=== PATIENT | male | born 1940 | race Caucasian/White ===

== ENCOUNTER 2017-03-27 07:42 | Emergency (ER) | payer MEDICARE ==
[2015-06-11 07:48] VITALS: BMI 32.6
[~2017-03-27 07:42] MED LIST: BAYER CHEWABLE81 MG PO; CLEOCIN HCL300 MG PO; DALIRESP500 MCG PO; FLUTICASONE PRO16 GM NASAL; IPRAT-ALBUT 0.5-3 ML UPD; K-TAB10 MEQ PO; LASIX20 MG PO; LEVAQUIN500 MG PO; MUCINEX1200 MG/BO PO; PLAVIX75 MG PO; PREDNISONE10 MG PO; SINGULAIR10 MG PO; SYMBICORT 16010.2 GM INH; TESSALON PERLE100 MG PO; VENTOLIN HFA18 GM INH; ZITHROMAX250 MG PO
[2017-03-27 08:19] LABS: BASOPHILS 0.9 % (0-2); HEMATOCRIT 45.5 % (42.0-54.0); HEMOGLOBIN 15.6 g/dL (13.5-17.5); IMMATURE GRANULOCYTES 0.3 % (0-5); LYMPHOCYTES 35.9 % (15-50); MCH 33.1 pg (26.0-34.0); MCHC 34.3 g/dL (31.0-37.0); MCV 96.6 fL (80.0-100.0); MEAN PLATELET VOLUME 10.3 fL (7.4-10.4); MONOCYTES 7.8 % (2-11); NEUTROPHILS 42.1 % (40-80); PLATELET COUNT 208 10x3/uL (130-400); RBC 4.71 10x6/uL (4.20-6.10); RDW 13.1 % (11.5-14.5); WBC 7.7 10x3/uL (4.8-10.8)
[2017-03-27 08:38] LABS: ALBUMIN 3.7 g/dL (3.4-5.0); ANION GAP 15.5 mmol/L (8-16); BILIRUBIN - TOTAL 0.87 mg/dL (0.2-1.3); CALCIUM 8.8 mg/dL (8.5-10.1); CARBON DIOXIDE 22.6 mmol/L (21.0-32.0); CREATININE - SERUM 1.1 mg/dL (0.6-1.3); POTASSIUM - SERUM 4.1 mmol/L (3.5-5.1); PROTEIN - SERUM 7.1 g/dL (6.4-8.2)
[2017-03-27 08:47] LABS: TROPONIN-I 0.022 ng/mL (0.000-0.060)
== END 2017-03-27 09:20 | disposition home or self-care (01) ==
LOC: D.ER 07:42
PROVIDERS: Emergency Medicine
DX: J44.1 Chronic obstructive pulmonary disease with (acute) exacerbation (principal); I10 Essential (primary) hypertension

== ENCOUNTER 2017-04-03 08:07 | Emergency (ER) | payer MEDICARE ==
[2015-06-11 07:48] VITALS: BMI 32.6
[2017-04-03 08:34] LABS: EOSINOPHILS 19.6 % (0-7); HEMATOCRIT 46.3 % (42.0-54.0); HEMOGLOBIN 15.9 g/dL (13.5-17.5); IMMATURE GRANULOCYTES 0.3 % (0-5); LYMPHOCYTES 36.9 % (15-50); MCH 33.1 pg (26.0-34.0); MCHC 34.3 g/dL (31.0-37.0); MCV 96.5 fL (80.0-100.0); MEAN PLATELET VOLUME 10.3 fL (7.4-10.4); MONOCYTES 9.2 % (2-11); PLATELET COUNT 240 10x3/uL (130-400); WBC 8.9 10x3/uL (4.8-10.8)
[2017-04-03 08:47] LABS: ALBUMIN 3.9 g/dL (3.4-5.0); ANION GAP 16.7 mmol/L (8-16); BILIRUBIN - TOTAL 0.81 mg/dL (0.2-1.3); CALCIUM 8.8 mg/dL (8.5-10.1); CARBON DIOXIDE 23.3 mmol/L (21.0-32.0); CREATININE - SERUM 1.3 mg/dL (0.6-1.3); PROTEIN - SERUM 7.5 g/dL (6.4-8.2)
[2017-04-03 09:10] LABS: MAGNESIUM - SERUM 2.2 mg/dL (1.8-2.4); TROPONIN-I 0.03 ng/mL (0.000-0.060)
== END 2017-04-03 10:33 | disposition home or self-care (01) ==
LOC: D.ER 08:07
PROVIDERS: Emergency Medicine
DX: R06.00 Dyspnea, unspecified (principal); J44.1 Chronic obstructive pulmonary disease with (acute) exacerbation; I50.9 Heart failure, unspecified; I10 Essential (primary) hypertension

== ENCOUNTER 2017-04-05 02:24 | Inpatient (IN) | payer MEDICARE ==
[~2017-04-05] VITALS: Ht 172.7 cm; Wt 94.3 kg
[2017-04-05 02:58] LABS: BASOPHILS 0.5 % (0-2); EOSINOPHILS 6.5 % (0-7); HEMATOCRIT 44.4 % (42.0-54.0); HEMOGLOBIN 14.9 g/dL (13.5-17.5); IMMATURE GRANULOCYTES 0.7 % (0-5); MCH 32.6 pg (26.0-34.0); MCHC 33.6 g/dL (31.0-37.0); MCV 97.2 fL (80.0-100.0); MEAN PLATELET VOLUME 10.1 fL (7.4-10.4); MONOCYTES 8.2 % (2-11); NEUTROPHILS 48.1 % (40-80); PLATELET COUNT 250 10x3/uL (130-400); RBC 4.57 10x6/uL (4.20-6.10); RDW 13.2 % (11.5-14.5); WBC 10.7 10x3/uL (4.8-10.8)
[2017-04-05 03:11] LABS: ANION GAP 18.9 mmol/L (8-16); BILIRUBIN - TOTAL 0.63 mg/dL (0.2-1.3); CALCIUM 8.5 mg/dL (8.5-10.1); CARBON DIOXIDE 21.3 mmol/L (21.0-32.0); CREATININE - SERUM 1.8 mg/dL (0.6-1.3); POTASSIUM - SERUM 4.2 mmol/L (3.5-5.1); PROTEIN - SERUM 7.4 g/dL (6.4-8.2)
[2017-04-05 03:30] LABS: TROPONIN-I 0.059 ng/mL (0.000-0.060)
[2017-04-05 05:08] VITALS: BP 147/78; BMI 31.6
--- NOTE | 2017-04-05 05:20 | NUR ---
PATIENT RECIEVED FROM ER VIA WHEEL CHAIR. AWAITING TO BRING ABX FROM HOME. STATED THAT DR YIN PRESCRIBED THEM. HE IS ON 2LPM 02 VIA NASAL CANULA. HAS EXERTIONAL DYSPNEA. PIV TO RIGHT HAND SALINE LOCKED. TELEMETRY BEING PLACED ON. HOB ELEVATED, BED IN LOWEST LOCKED POSITION, CALL LIGHT WITHIN REACH.
--- NOTE | 2017-04-05 07:10 | NUR ---
REPORT RECEIVED FROM INSTANT PRINT OPERATOR NURSE. CALL LIGHT IN REACH.
[2017-04-05 08:14] VITALS: BP 121/76
--- NOTE | 2017-04-05 08:16 | NUR ---
ASSESSMENT COMPLETED. DENIES NEEDS AT THIS TIME. CALL LIGHT IN REACH. WILL CONTINUE WITH PLAN OF CARE.
--- NOTE | 2017-04-05 10:55 | NUR ---
AM MEDS ADMINISTERED. CALL LIGHT IN REACH.
[2017-04-05 11:51] VITALS: BP 124/88; BP 151/88
--- NOTE | 2017-04-05 12:29 | NUR ---
AWAKE AND ALERT. ORIENTED X3. NO C/O AT THIS TIME. LUNGS HAVE CRACKLES THROUGHOUT. DENIES PRODUCTIVE COUGH . DENIES NEEDS.
[2017-04-05] MEDS ORDERED: OMNICEF300 MG PO (12:30)
[2017-04-05] MEDS ORDERED: CLEOCIN HCL150 MG PO (12:30)
[2017-04-05] MEDS ORDERED: VIBRAMYCIN 100100 MG PO (12:30)
--- NOTE | 2017-04-05 12:58 | NUR ---
PT AMBULATED TO BATHROOM. ACUTE EXACERBATION OF EXERTIONAL DYPSNEA NOTED BILATERAL EXP COURSE CRACKLES WITH EXPIRATORY WHEEZES TO ALL ANTERIOR SAPP OF ASCULTATION. DUO NEB GIVEN ELIAS NEBULIZER. RR RATE 28BREATHS PER MIN POST TX PT STATES RESPIRATORY EFFORT "EASIER"
--- NOTE | 2017-04-05 14:05 | NUR ---
HAS PULLED IV OUT WITH TIP INTACT.
[2017-04-05 14:40] VITALS: Ht 172.7 cm; Wt 94.3 kg
[2017-04-05 16:05] VITALS: BP 171/95
--- NOTE | 2017-04-05 16:50 | NUR ---
IV SITED TO RIGHT WRIST WITH 22 GA X1 STICK.
--- NOTE | 2017-04-05 17:43 | NUR ---
IV SOLU-MEDROL ADMINISTERED. CALL LIGHT IN REACH.
--- NOTE | 2017-04-05 18:28 | NUR ---
NO CHANGES IN INITIAL ASSESSMENT. CALL LIGHT IN REACH. STILL REFUSES. WILL CONTINUE WITH PLAN OF CARE.
--- NOTE | 2017-04-05 20:00 | NUR ---
ASSESSMENT PER FLOWSHEET.BILATERAL EXPIRATORY WHEEZES NOTED O2 ON 3L/M PER NC. SALINE LOCK PATENT RT HAND . TELM./ SHOWS SR. REFUSES SCD'S.
[2017-04-05 20:21] VITALS: BP 158/73
--- NOTE | 2017-04-05 21:15 | NUR ---
MEDS GIVEN PER MAR.
--- NOTE | 2017-04-06 00:42 | NUR ---
PT TOOK O2 OFF AND WENT TO BATHROOM TO VOID CAME BACK TO BED AND GASPING FOR AIR. REPLACED O2 INSTRUSTED PT ON PURSE LIP BREATHING. PLACED FAN ON PATENT NOTIFIED RT TAWANA ROB TO DO UPDRAFT TX.
--- NOTE | 2017-04-06 00:43 | NUR ---
RT GILLIAM AT BEDSIDE FOR CH[place] HAN
--- NOTE | 2017-04-06 00:58 | NUR ---
HOB UP 45 DEGREES FAN ON PATIENT. ABLE TO BREATHE BETTER AFTER UPDRAFT TX. RESPIRATIONS STILL LABORED AND PT IS SOB BUT IMPROVING.
[2017-04-06 03:50] VITALS: BP 128/101
[2017-04-06 04:15] LABS: BASOPHILS 0 % (0-2); EOSINOPHILS 0 % (0-7); HEMOGLOBIN 14.1 g/dL (13.5-17.5); IMMATURE GRANULOCYTES 0.4 % (0-5); LYMPHOCYTES 8.8 % (15-50); MCHC 34.4 g/dL (31.0-37.0); MEAN PLATELET VOLUME 10.3 fL (7.4-10.4); MONOCYTES 3.7 % (2-11); NEUTROPHILS 87.1 % (40-80); PLATELET COUNT 258 10x3/uL (130-400); RBC 4.27 10x6/uL (4.20-6.10); RDW 13.2 % (11.5-14.5); WBC 12.7 10x3/uL (4.8-10.8)
[2017-04-06 04:32] LABS: ANION GAP 15.5 mmol/L (8-16); CALCIUM 8.8 mg/dL (8.5-10.1); CARBON DIOXIDE 23.6 mmol/L (21.0-32.0); CREATININE - SERUM 1.2 mg/dL (0.6-1.3); POTASSIUM - SERUM 4.1 mmol/L (3.5-5.1)
--- NOTE | 2017-04-06 07:10 | NUR ---
REPORT RECEIVD FROM TRAY LINE WORKER NURSE. CALL LIGHT IN REACH.
--- NOTE | 2017-04-06 07:34 | HP ---
PATIENT: ANNMARIE COATES MEDICAL RECORD: [id number] ACCOUNT: [id number] LOCATION:D.MS [id number] : 42 ADMISSION DATE: 04/05/17 HISTORY AND PHYSICAL EXAMINATION HISTORY OF PRESENT ILLNESS: A 76-year-old male presented to the Emergency Room early this morning with shortness of breath, persistent cough, reports syncopal episodes with spasmodic coughing, history of COPD, coronary artery disease. He had a clear heart cath 2016, has had prior stent placements. Denies anginal symptoms, just the cough, shortness of breath. MEDICATIONS: Reported medications Spiriva. He has been on antibiotics to the clinic for bronchitis, exacerbation of chronic obstructive pulmonary disease, also on tapered prednisone. He has a nebulizer at home, DuoNebs at home. ALLERGIES: No known drug allergies. SOCIAL HISTORY: Former smoker, has not smoked for 5 years. REVIEW OF SYSTEMS: GENERAL: No acute change in weight or appetite. HEENT: Denies cephalgia, visual changes, tinnitus, epistaxis, or dysphagia. CARDIOVASCULAR: Chest pain with cough only, no anginal-type symptoms. PULMONARY: Persistent cough. GASTROINTESTINAL: Denies hematemesis, hematochezia, or melena. GENITOURINARY: Denies dysuria. MUSCULOSKELETAL: No acute changes. ENDOCRINE: Denies polyuria, polydipsia, or polyphagia. PHYSICAL EXAMINATION: VITAL SIGNS: Temperature 98.4, blood pressure is 121/76, heart rate 99, respirations 18, and O2 sats 92% on 4 liters via nasal cannula. HEENT: Head is normocephalic, atraumatic. Eyes; pupils are equal, round, and reactive to light and accommodation. Extraocular muscles intact. Conjunctiva was not injected. Ears, canals patent. TMs are intact. Nose, nares patent without drainage. Throat, no erythema, no exudates. NECK: Supple. No lymphadenopathy, no JVD. HEART: Regular rate and rhythm. LUNGS: Scattered rhonchi bilaterally. Expiratory wheeze. ABDOMEN: Soft, nontender. Bowel sounds all 4 quadrants. EXTREMITIES: Present times 4. NEUROLOGIC: No focal deficits. SKIN: Warm and dry. No rash. LABORATORY DATA AND DIAGNOSTIC STUDIES: ABG: pH 7.327, pCO2 of 39.7, and pO2 of 71. CBC: White count 10.7, hemoglobin 14.9, hematocrit 44.4, platelets 250. D-dimer 0.38. Chemistry shows sodium 141, potassium 4.2, chloride 105, bicarbonate 21.3, BUN 24, creatinine 1.8. Chest x-ray: No acute cardiopulmonary process. ASSESSMENT AND PLAN: Exacerbation of chronic obstructive pulmonary disease. The patient is admitted. We will consult pulmonology. With his smoking history and prior abnormal CT, we will obtain a CT without contrast due to renal function and cautious hydration with fluids, DuoNebs, and supportive care. Supplemental O2. HISTORY AND PHYSICAL [id number] ANNMARIE COATES TRANSINT:[id number] Voice Confirmation ID: [id number] DOCUMENT ID: [id number] SUAD CULVER DO at 0734 CC: [id number] DICTATION DATE: 04/05/17 0856 SOURCING SPECIALIST: 04/05/[address] [facility] [address] [place] [address]
--- NOTE | 2017-04-06 08:17 | NUR ---
ASSESSMENT COMPLETED. REFUSES SCDs. CALL LIGHT IN REACH. WILL CONTINUE WITH PLAN OF CARE.
[2017-04-06 08:38] VITALS: BP 113/70
--- NOTE | 2017-04-06 09:38 | NUR ---
PT SEEN. STATES BREATHING IS BETTER THIS AM. DOES NOT WEAR OXYGEN AT HOME. NO SOB NOTED OR STATED. RESTING QUIETLY WITH EYES CLOSED. CALL LIGHT IN REACH
--- NOTE | 2017-04-06 10:59 | NUR ---
AM MEDS ADMINISTERED. CALL LIGHT IN REACH.
--- NOTE | 2017-04-06 12:15 | NUR ---
RESPIRATORY IN ROOM TO DO BREATHING TREATMENT.
[2017-04-06 12:56] VITALS: BP 141/78
--- NOTE | 2017-04-06 14:10 | NUR ---
RESTING WITH EYES CLOSED. RESP EVEN AND UNLABORED. CALL LIGHT IN REACH.
[2017-04-06 16:29] VITALS: BP 127/74
--- NOTE | 2017-04-06 16:38 | NUR ---
ORAL MEDS ADMINISTERED. COUGH MED PER REQUEST. CALL LIGHT IN REACH.
--- NOTE | 2017-04-06 18:49 | NUR ---
SOLUMEDROL IVP. STILL REFUSES SCDs. NO CHANGES IN INITIAL ASSESSMENT. CALL LIGHT IN REACH. WILL CONTINUE WITH PLAN OF CARE.
[2017-04-06 20:00] VITALS: BP 160/67
--- NOTE | 2017-04-06 22:06 | NUR ---
REC'D. SITTING IN UPRIGHT POSITION FAN ON. STATES COOL AIR HELPS HIM TO BREATH BETTER. DENIES ANY RESP. DIFFICULTY AT PRESENT TIME. WILL CONTINUE TO MONITOR FOR ANY CHGES.AND FOLLOW CURRENT PLAN OF CARE.
[2017-04-07] VITALS: BP 152/64
--- NOTE | 2017-04-07 03:55 | NUR ---
0300) RESP. THERAPY HERE FOR UPDRAFT THERAPY.MOMENTS INTO TX.PASSED DOOR PATIENT DUSKY IN COLOR STATES CAN'T BREATH. SATS 88% ON 3L NC.RESP. HERE OXIMIZER APPLIED AT 7L.SATS 91% 0345) 97% NC REAPPLIED AT 0400 SATS REMAIN AT 96-97% ON 3L NC STATES FEELS MUCH BETTER NOW
[2017-04-07 04:00] VITALS: BP 140/88
--- NOTE | 2017-04-07 05:44 | NUR ---
PATIENT RESTING IN BED WITH EYES CLOSED AND NO VISIBLE SIGNS OF DISTRESS. BED IN LOWEST POSITION AND CALL LIGHT WITHIN REACH.
--- NOTE | 2017-04-07 07:25 | NUR ---
REPORT RECEIVED FROM FOAM RUBBER FABRICATOR NURSE. CALL LIGHT IN REACH.
[2017-04-07 08:36] VITALS: BP 148/93
--- NOTE | 2017-04-07 08:37 | NUR ---
PLEASE CHANGE TO PORTABLE THE PATIENT IS TOO WEAK TO STAND
--- NOTE | 2017-04-07 08:40 | NUR ---
ASSESSMENT COMPLETED. REFUSES SCDs. CALL LIGHT IN REACH. WILL CONTINUE WITH PLAN OF CARE.
--- NOTE | 2017-04-07 09:24 | NUR ---
AMBULATED FOR EVALUATION OF HOME O2 PER MD ORDER. PT WALKED APPROX 20 YARD WHERE MARKED EXERTIONAL DYPSNEA WAS NOTED SPO2 DECREASED TO 88%. REAPPLIED O2 OF 2L VIA NC. PT RECOVERED TO 94%. PURSED LIP BREATHING AND PROLONGED EXPIRATION NOTED UPON DYSPNEIC EPISODE. PT LIZ TX WELL
--- NOTE | 2017-04-07 11:17 | NUR ---
AM MEDS ADMINISTERED PER FLORA GONZALEZ. CALL LIGHT IN REACH.
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
--- NOTE | 2017-04-07 13:15 | NUR ---
RESPIRATORY THERAPY IN ROOM WITH PATIENT AT THIS TIME. CALL LIGHT IN REACH.
--- NOTE | 2017-04-07 13:50 | NUR ---
NUTRITION F/U CHART REVIEWED. PT TOLERATING REG DIET, 100% INTAKE RECENT MEALS. WILL CONTINUE TO PROVIDE DIET, HONOR FOOD PREFERENCES. RD FOLLOWING
--- NOTE | 2017-04-07 14:05 | NUR ---
pt note-pt has exp wheezes noted-after talking with me, pt noted to be lip purse breathing to recover oxygen level-instructed pt to slow breathing down-resp easier now. spouse at bedside. call light in reach
[2017-04-07 14:20] VITALS: BP 138/80
--- NOTE | 2017-04-07 14:49 | NUR ---
NATALYA RAMIREZ PO. CALLED DR. BUSCH'S OFFICE AND LEFT MESSAGE THAT PATIENT WOULD LIKE TO SPEAK WITH HIM.
--- NOTE | 2017-04-07 14:50 | NUR ---
REPORT GIVEN TO FLORA CLAY.
[2017-04-07 16:23] VITALS: BP 154/78
[2017-04-07 23:09] VITALS: BP 164/86
--- NOTE | 2017-04-07 23:25 | NUR ---
REC'D. GETTING UPDRAFT TX. LIZ. WELL THIS PM.02 3L NC. 02 SATS 94% WILL CONTINUE TO MONITOR FOR ANY CHGES. AND FOLLOW CURRENT PLAN OF CARE.
[2017-04-08 01:20] VITALS: BP 131/78
[2017-04-08 05:04] LABS: ANION GAP 14.3 mmol/L (8-16); CALCIUM 8.8 mg/dL (8.5-10.1); CARBON DIOXIDE 25.9 mmol/L (21.0-32.0); CREATININE - SERUM 1.2 mg/dL (0.6-1.3); POTASSIUM - SERUM 4.2 mmol/L (3.5-5.1)
[2017-04-08 05:48] VITALS: BP 137/87
--- NOTE | 2017-04-08 07:40 | NUR ---
Patient Name: ANNMARIE COATES Admission Status: ER Accout number: [id number] Admission Date: 04-05-2017 : 1940 Admission Diagnosis:CHRONIC OBSTRUCTIVE PULMONARY DISEASE W (ACUTE) EXACERB Attending: SUAD CULVER Current LOS: 3 Anticipated DC Date: 04-11-2017 Planned Disposition: Home Primary Insurance: [employer] CHOICE PPO MCR ADVANT Discharge Planning Comments: CM MET WITH PATIENT REGARDING D/C NEEDS AND PLANS. PATIENT STATED HE LIVES WITH HIS (SUSAN WARREN) AND SHE WILL DRIVE HIM HOME AT DISCHARGE. PATIENT STATED HE HAS 4 STEPS TO ENTER HOME AND NO STAIRS INSIDE. PATIENT IS INDEPENDENT WITH HIS CARE AND HAS NO DME AT HOME. PATIENTS PCP IS DR. CULVER AND PHARMACY IS READING [facility]. PATIENT HAS A [employer] NURSE THAT VISITS ONCE EVERY 3 MONTHS. PATIENT IS REFUSING HOME HEALTH AT THIS TIME. CM WILL CONTINUE TO FOLLOW PATIENT WITH D/C NEEDS AND PLANS. PCP DR. CULVER [facility]- [phone] SUSAN WARREN () [phone] Innersole Maker: Tracy Mckeon Is the patient Alert and Oriented? Yes 0 * How many steps to enter\exit or inside your home? 4 w/o rail 0 * PCP DR. CULVER 0 * [facility] 0 * Preadmission Environment Home with Family 0 * ADLs Independent 0 * Equipment None 0 * List name and contact numbers for known caregivers / representatives who currently or will assist patient after discharge: SUSAN WARREN () [phone] 0 * Community resources currently utilized None 0 * Additional services required to return to the preadmission environment? Yes 0 * Can the patient safely return to the preadmission environment? Yes 0 * Has this patient been hospitalized within the prior 30 days at any hospital? No 0 Grand Total: 0
--- NOTE | 2017-04-08 07:57 | NUR ---
REPORT RECEIVED FROM TRANSMISSION TESTER NURSE. CALL LIGHT IN REACH.
--- NOTE | 2017-04-08 08:15 | NUR ---
ASSESSMENT COMPLETED. STILL REFUSING TO WEAR SCDs. INSTRUCTED PATIENT TO SIT IN CHAIR FOR BREAKFAST AND ALL OTHER MEALS. VERBALIZED UNDERSTANDING. CALL LIGHT IN REACH. WILL CONTINUE WITH PLAN OF CARE.
[2017-04-08 09:07] VITALS: BP 136/74
--- NOTE | 2017-04-08 09:28 | NUR ---
AM MEDS ADMINISTERED. REQUESTING LIQUID COUGH MED BUT TOO SOON. EXPLAINED THIS TO PATIENT AND HE VERBALIZED UNDERSTANDING. PATIENT REFUSED TO WALK WITH PHYSICAL THERAPY. EXPLAINED TO PATIENT THAT HE NEEDS TO GET UP AND MOVE AROUND BUT HE STATES THAT HE GETS TOO OUT OF BREATH. HE DID SIT IN THE CHAIR FOR BREAKFAST. CALL LIGHT IN REACH. WILL CONTINUE WITH PLAN OF CARE.
--- NOTE | 2017-04-08 11:50 | NUR ---
HAS NOT HAD ANY TROUBLE OR DIFFICULTY BREATHING TODAY AT THIS TIME. STARTING TO BE ABLE TO FINALLY GET THE SPUTUM OUT.
--- NOTE | 2017-04-08 12:16 | NUR ---
HARSH PO. STATES HE FEELS LIKE HE ISN'T GETTING ANY AIR. STATES "I AM DYING." EXPLAINED TO PATIENT THAT HE IS NOT DYING AND HE IS MORE ANXIUOS AT THIS TIME BUT HE IS PASSING AIR. CALLED RESPIRATORY THERAPIST TO SEE IF PATIENT CAN HAVE A PRN BREATHING TREATMENT.
[2017-04-08 12:51] VITALS: BP 157/73
--- NOTE | 2017-04-08 13:16 | NUR ---
PT NOTE-NO SOB NOTED OR VOICED AT THIS MOMENT. HAD ATTACK DURING THE NIGHT BUT IS BETTER THIS AM. UP IN CHAIR. CALL LIGHT IN REACH
--- NOTE | 2017-04-08 15:24 | NUR ---
XANAX, COUGH MED, AND TESSALON PERLES PO. IN ROOM. CALL LIGHT IN REACH.
[2017-04-08 17:07] VITALS: BP 122/73
--- NOTE | 2017-04-08 17:20 | NUR ---
RESTING WITH EYES CLOSED. RESP EVEN AND UNLABORED. CALL LIGHT IN REACH.
--- NOTE | 2017-04-08 18:16 | NUR ---
AMAURY IVPB. ALL NEW IV TUBING PER HOSPITAL PROTOCOL. NO OTHER CHANGES IN INITIAL ASSESSMENT. CALL LIGHT IN REACH. STILL REFUSES SCDs. WILL CONTINUE WITH PLAN OF CARE.
[2017-04-08 20:00] VITALS: BP 133/78
--- NOTE | 2017-04-08 20:00 | NUR ---
ASSESSMENT PER FLOWSHEET. IV PATENT TO RT HAND. WITH NS AT KVO. EDEMA NOTED AT SITE. IV REMOVED RESITED TO LEFT WRIST #22G ANGIOCATH X2 ATTEMPTS. O2 ON 3L/M PER NC. TELM SHOWS SR WITH HR 76. DENIES NEEDS. SR UP X2 CALL LIGHT WITHIN REACH.
--- NOTE | 2017-04-08 22:00 | NUR ---
MEDS GIVEN PER MAR.
--- NOTE | 2017-04-08 23:13 | NUR ---
REQUESTING HIS ANXIETY MED XANAX 0.25MG PO GIVEN BY PELON HINES.
--- NOTE | 2017-04-08 23:30 | NUR ---
DR. BUSCH WROTE IN ORDERS. TO CHANGE SOLUMEDROL TIMES. PM DOSE HAS ALREADY BEEN GIVEN WILL HOLD 2400 DOSE AND GIVE DOSE AT 0600.
[2017-04-09] VITALS: BP 140/75
[2017-04-09 04:00] VITALS: BP 144/75
[2017-04-09 05:18] LABS: BASOPHILS 0 % (0-2); EOSINOPHILS 0 % (0-7); HEMATOCRIT 44.4 % (42.0-54.0); HEMOGLOBIN 15.1 g/dL (13.5-17.5); IMMATURE GRANULOCYTES 1.8 % (0-5); LYMPHOCYTES 8.2 % (15-50); MCH 32.8 pg (26.0-34.0); MCV 96.3 fL (80.0-100.0); MEAN PLATELET VOLUME 10.7 fL (7.4-10.4); MONOCYTES 2.8 % (2-11); NEUTROPHILS 87.2 % (40-80); PLATELET COUNT 243 10x3/uL (130-400); RBC 4.61 10x6/uL (4.20-6.10); RDW 13.2 % (11.5-14.5); WBC 10.2 10x3/uL (4.8-10.8)
[2017-04-09 06:00] LABS: ANION GAP 13.8 mmol/L (8-16); CALCIUM 8.8 mg/dL (8.5-10.1); CARBON DIOXIDE 25.6 mmol/L (21.0-32.0); CREATININE - SERUM 1.5 mg/dL (0.6-1.3); MAGNESIUM - SERUM 2.1 mg/dL (1.8-2.4); PHOSPHOROUS 3.6 mg/dL (2.5-4.9); POTASSIUM - SERUM 4.4 mmol/L (3.5-5.1)
--- NOTE | 2017-04-09 08:35 | NUR ---
ASSESSMENT COMPLETED. REFUSES SCDs. CALL LIGHT IN REACH. WILL CONTINUE WITH PLAN OF CARE.
[2017-04-09 08:48] VITALS: BP 128/89
--- NOTE | 2017-04-09 09:45 | NUR ---
AM MEDS ADMINISTERED. COUGH MED ALSO. AT BEDSIDE. CALL LIGHT IN REACH.
--- NOTE | 2017-04-09 11:30 | NUR ---
IN ROOM AT THIS TIME. PATIENT DENIES NEEDS. CALL LIGHT IN REACH.
[2017-04-09 13:11] VITALS: BP 135/85
--- NOTE | 2017-04-09 13:12 | NUR ---
SOLUMEDROL SIVP. WAITING ON ABX FROM PHARMACY. DENIES NEEDS AT THIS TIME. CALL LIGHT IN REACH.
--- NOTE | 2017-04-09 14:49 | NUR ---
O2 @ 3L PER NC. EXPIRATORY WHEEZING TO ALL LUNG SAPP. COBY TAVERAS, IN ROOM TO GIVE IV ABX AND TESSALON PERLES. STATES HE FEELS MUCH BETTER THAN HE HAS IN THE LAST COUPLE OF DAYS. DENIES PAIN OR NEEDS. IN ROOM. CALL LIGHT IN REACH.
[2017-04-09 16:21] VITALS: BP 146/85
--- NOTE | 2017-04-09 16:41 | NUR ---
DENIES NEEDS AT THIS TIME. CALL LIGHT IN REACH.
--- NOTE | 2017-04-09 18:00 | NUR ---
XANAX PO AND LEVAQUIN AND SOLUMEDROL IV. NO OTHER CHANGES IN INITIAL ASSESSMENT. CALL LIGHT IN REACH. STILL REFUSES SCDs. WILL CONTINUE WITH PLAN OF CARE.
--- NOTE | 2017-04-09 19:00 | NUR ---
REPORT RECEIVED AND CARE OF PT ASSUMED. PT LYING IN HIGH ARDON'S POSITION WATCHING TV. IV IN LEFT WRIST PATENT WITH LEVAQUIN INFUSING AT THIS TIME. TELEMETRY IN PLACE AND READING [address] AT THIS ASSESSMENT. O2 IN USE VIA NC AT 3L. WILL MONITOR QUETALEY FOR NEEDS.
[2017-04-09 20:00] VITALS: BP 146/87
--- NOTE | 2017-04-09 20:30 | NUR ---
HS MEDICATIONS GIVEN TO INCLUDE TUSSIONEX COUGH SYRUP PER PRN ORDER, PER REQUEST. WILL CONTINUE TO MONITOR FOR NEEDS.
--- NOTE | 2017-04-09 21:17 | NUR ---
PT UP TO RESTROOM....GETS VERY SOB ON EXERTION.
[2017-04-10] VITALS: BP 151/82
[2017-04-10 04:00] VITALS: BP 144/52
[2017-04-10 06:37] LABS: ANION GAP 15.8 mmol/L (8-16); CALCIUM 8.8 mg/dL (8.5-10.1); CARBON DIOXIDE 24.4 mmol/L (21.0-32.0); CREATININE - SERUM 1.3 mg/dL (0.6-1.3); POTASSIUM - SERUM 4.2 mmol/L (3.5-5.1)
--- NOTE | 2017-04-10 08:00 | NUR ---
ASSESSMENT PER FLOW SHEET.PT WITHOUT DISTRESS.DENIES NEEDS AT PRESENT.MONITOR FOR NEEDS
[2017-04-10 10:10] VITALS: BP 146/73
--- NOTE | 2017-04-10 13:00 | NUR ---
HAS RESTED SOME THIS AM,BUT KEEPS GETTING WOKE UP PER PT.
[2017-04-10 13:39] VITALS: BP 140/70
[2017-04-10 16:51] VITALS: BP 138/72
--- NOTE | 2017-04-10 18:10 | NUR ---
IV RESITED X2 STICKS USING ASEPTIC TECH 22G. PREVIOUS IV LEAKING AND DCD WITH CATH INTACT.
--- NOTE | 2017-04-10 18:18 | NUR ---
REMAINS WITHOUT CHANGE FROM INITIAL SHIFT ASSESSMENT .CONT PLAN OF CARE
--- NOTE | 2017-04-10 19:00 | NUR ---
REPORT RECEIVED AND CARE OF PT ASSUMED. PT LYING IN HIGH RADON'S POSITION WATCHING TV. IV IN LEFT FA PATENT WITH LEVOQUIN INFUSING AT THIS TIME. TELEMETRY IN PLACE AND READING 89 SR W/ PAC'S. O2 IN USE VIA NC AT 3L. WILL MONITOR CLOSELY FOR NEEDS. CALL LIGHT WITHIN REACH.
[2017-04-10 20:00] VITALS: BP 119/80
--- NOTE | 2017-04-10 21:05 | NUR ---
HS MEDICATIONS GIVEN TO INCLUDE TUSSINEX FOR COUGH AND XANAX FOR ANXIETY PER REQUEST, PER PRN ORDERS. WILL CONTINUE TO MONITOR FOR NEEDS.
[2017-04-11] VITALS: BP 142/78; BP 155/88
[2017-04-11 04:00] VITALS: BP 141/76
[2017-04-11 05:09] LABS: BASOPHILS 0.1 % (0-2); EOSINOPHILS 0 % (0-7); HEMATOCRIT 43.5 % (42.0-54.0); HEMOGLOBIN 14.7 g/dL (13.5-17.5); IMMATURE GRANULOCYTES 1.6 % (0-5); LYMPHOCYTES 5.3 % (15-50); MCH 32.9 pg (26.0-34.0); MCHC 33.8 g/dL (31.0-37.0); MCV 97.3 fL (80.0-100.0); MEAN PLATELET VOLUME 10.5 fL (7.4-10.4); MONOCYTES 4.4 % (2-11); NEUTROPHILS 88.6 % (40-80); PLATELET COUNT 253 10x3/uL (130-400); RBC 4.47 10x6/uL (4.20-6.10); RDW 13.2 % (11.5-14.5); WBC 15.1 10x3/uL (4.8-10.8)
[2017-04-11 05:45] LABS: CALCIUM 8.3 mg/dL (8.5-10.1); CARBON DIOXIDE 25.3 mmol/L (21.0-32.0); CREATININE - SERUM 1.3 mg/dL (0.6-1.3); MAGNESIUM - SERUM 2.2 mg/dL (1.8-2.4); PHOSPHOROUS 3.1 mg/dL (2.5-4.9); POTASSIUM - SERUM 4.3 mmol/L (3.5-5.1)
--- NOTE | 2017-04-11 07:15 | NUR ---
REPORT RECEIVED FROM RUG SAMPLE BEVELER NURSE. CALL LIGHT IN REACH.
--- NOTE | 2017-04-11 08:10 | NUR ---
ASSESSMENT COMPLETED. NO SOB AT THIS TIME. REFUSES SCDs. CALL LIGHT IN REACH. WILL CONTINUE WITH PLAN OF CARE.
--- NOTE | 2017-04-11 10:45 | NUR ---
FELIX AND ALISON PO WITH AM MEDS. CALL LIGHT IN REACH.
--- NOTE | 2017-04-11 11:04 | NUR ---
RESTING QUIETLY IN BED. NO NEEDS NOTED.
[2017-04-11 11:38] VITALS: BP 154/87
--- NOTE | 2017-04-11 13:59 | NUR ---
CEFEPIME AND SOLUMEDROL IV. ALL IV TUBING CHANGED PER HOSPITAL POLICY.
[2017-04-11 15:04] VITALS: BP 138/74
--- NOTE | 2017-04-11 15:43 | NUR ---
NATALYA RAMIREZ PO. CALL LIGHT IN REACH.
--- NOTE | 2017-04-11 17:22 | NUR ---
AMAURY IVEY. AT BEDSIDE. NO NEEDS VOICED. CALL LIGHT IN REACH.
--- NOTE | 2017-04-11 18:11 | NUR ---
NO CHANGES IN INITIAL ASSESSMENT. CALL LIGHT IN REACH. STILL REFUSES SCDs. WILL CONTINUE WITH PLAN OF CARE.
--- NOTE | 2017-04-11 19:00 | NUR ---
REPORT RECEIVED AND CARE OF PT ASSUMED. PT LYING IN HIGH ARDON'S POSITION VISITING WITH FAMILY MEMBER. O2 IN USE VIA NC AT 3L. IV IN LEFT FA PATENT WITH LEVOQUIN INFUSING AT THIS TIME. TELEMETRY IN PLACE AND READING 96 SR W/ PAC'S AT THIS ASSESSMENT. WILL MONITOR CLOSELY FOR NEEDS.
--- NOTE | 2017-04-11 19:30 | NUR ---
PT IN SHOWER...BEDDING AND GOWN CHANGED.
[2017-04-11 20:00] VITALS: BP 115/76; BP 142/78
--- NOTE | 2017-04-11 20:01 | NUR ---
HS MEDICATIONS GIVEN TO INCLUDE XANAX 0.25 PO PER PT REQUEST FOR ANXIETY. WILL CONTNIUE TO MONITOR FOR NEEDS. FAMILY MEMBERS ARE AT BEDSIDE.
[2017-04-12] VITALS: BP 115/76
[2017-04-12 04:00] VITALS: BP 139/85
[2017-04-12 04:21] LABS: BASOPHILS 0.1 % (0-2); EOSINOPHILS 0 % (0-7); HEMATOCRIT 44.4 % (42.0-54.0); IMMATURE GRANULOCYTES 3.6 % (0-5); LYMPHOCYTES 4.7 % (15-50); MCHC 33.8 g/dL (31.0-37.0); MCV 97.8 fL (80.0-100.0); MEAN PLATELET VOLUME 10.2 fL (7.4-10.4); MONOCYTES 5.2 % (2-11); NEUTROPHILS 86.4 % (40-80); PLATELET COUNT 254 10x3/uL (130-400); RBC 4.54 10x6/uL (4.20-6.10); RDW 13.4 % (11.5-14.5); WBC 15.6 10x3/uL (4.8-10.8)
[2017-04-12 04:45] LABS: ANION GAP 13.6 mmol/L (8-16); APTT 22.6 SECONDS (22.8-39.4); CALCIUM 8.6 mg/dL (8.5-10.1); CARBON DIOXIDE 25.9 mmol/L (21.0-32.0); CREATININE - SERUM 1.3 mg/dL (0.6-1.3); INR 1.1 (0.85-1.17); POTASSIUM - SERUM 4.5 mmol/L (3.5-5.1); PROTIME 14.1 SECONDS (11.6-15.0)
--- NOTE | 2017-04-12 07:33 | NUR ---
PT UP AND IN RESTROOM , VERY SHORT OF BREATH WHEN HE CAME OUT, PT IS ON 3L OF OXYGEN, PT ASKED FOR ATIVAN STATED HE DID NOT GET ONE LAST NIGHT AND IS VERY ANXIOUS. PT [facility] SCHEDULED FOR NO[facility], WENT AHEAD AND GAVE PT MED WITH SIP OF WATER, PT CALMED DOWN AND ABLE TO BREATHE EASIER, CONTINUE WITH PLAN OF CARE
[2017-04-12 08:38] VITALS: BP 175/93
--- NOTE | 2017-04-12 10:02 | NUR ---
PT AOX4 RESP EVEN AND NONLABORED PT DENIES NEEDS AT THIS TIME IV TO LEFT FOREARM PATENT AND INTACT AT THIS TIME PT HERE FOR COPD FOR THIS VISIT. SRX2 BED AT LOWEST SETTING CALL LIGHT WITHIN REACH WILL CONTINUE TO MONITOR
[2017-04-12 12:38] VITALS: BP 143/84
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
[2017-04-12 16:16] VITALS: BP 144/69
--- NOTE | 2017-04-12 17:44 | NUR ---
PT WAS BROUGHT A REG DIET AND DINNER AND TOLERATED VERY WELL, NO SICKNESS FELT STATED THAT HE IS ATILL WHEEZING A BIT, ADVISED THAT BREATHING TREATMENTS WOULD CONTINUE
--- NOTE | 2017-04-12 20:00 | NUR ---
ASSESSMENT PER FLOWSHEET. IV PATENT RT HAND SALINE LOCKED SITE CLEAR. O2 ON 3L/M PER NC.BILATERAL EXSPIRATORY WHEEZES. NOTED. TELM. SHOWS SR WITH HR 84. DENIES NEEDS.
--- NOTE | 2017-04-12 21:55 | NUR ---
MEDS GIVEN PER JUL. SR UP X2 CALL LIGHT WITHIN REACH XANAX 0.25 TAB ONE PO GIVEN FOR ANXIETY/REST.
[2017-04-12 23:01] VITALS: BP 153/81
--- NOTE | 2017-04-13 00:47 | NUR ---
EYES CLOSED RESPIRATIONS WITH EASE AND UNLABORED.
[2017-04-13 01:52] VITALS: BP 148/83; BP 153/81
[2017-04-13 05:21] LABS: BASOPHILS 0.1 % (0-2); EOSINOPHILS 0 % (0-7); HEMATOCRIT 45.4 % (42.0-54.0); HEMOGLOBIN 15.2 g/dL (13.5-17.5); IMMATURE GRANULOCYTES 2.8 % (0-5); LYMPHOCYTES 8.6 % (15-50); MCH 32.8 pg (26.0-34.0); MCHC 33.5 g/dL (31.0-37.0); MCV 97.8 fL (80.0-100.0); MEAN PLATELET VOLUME 10.2 fL (7.4-10.4); MONOCYTES 3.6 % (2-11); NEUTROPHILS 84.9 % (40-80); PLATELET COUNT 236 10x3/uL (130-400); RBC 4.64 10x6/uL (4.20-6.10); RDW 13.4 % (11.5-14.5); WBC 13.8 10x3/uL (4.8-10.8)
[2017-04-13 05:22] VITALS: BP 141/78
[2017-04-13 05:33] LABS: ANION GAP 14.3 mmol/L (8-16); CALCIUM 8.4 mg/dL (8.5-10.1); CARBON DIOXIDE 24.4 mmol/L (21.0-32.0); CREATININE - SERUM 1.3 mg/dL (0.6-1.3); POTASSIUM - SERUM 4.7 mmol/L (3.5-5.1)
--- NOTE | 2017-04-13 06:00 | NUR ---
MEDS GIVEN PER MAR. NO CHANGES IN ASSESSMENT.
--- NOTE | 2017-04-13 07:55 | NUR ---
ASSESSMENT PER FLOW SHEET.PT WITHOUT DISTRESS.PT VERY ANXIOUS THIS AM AND EASILY EXCITED.PT DENIES PAIN AT PRESENT.CALL LIGHT IN REACH.
[2017-04-13 08:13] VITALS: BP 126/89
[2017-04-13 12:08] VITALS: BP 156/78
--- NOTE | 2017-04-13 13:11 | NUR ---
PT WITHOUT DISTRESS. TO VISIT.REMAINS WITHOUT NEEDS
--- NOTE | 2017-04-13 13:18 | NUR ---
NUTRITION F/U CHART REVIEWED. PT WITH GOOD INTAKE REG DIET. WILL CONTINUE TO PROVIDE DIET, MONITOR PO INTAKE. RD FOLLOWING
[2017-04-13 16:03] VITALS: BP 154/81
--- NOTE | 2017-04-13 17:30 | NUR ---
IV RESITED TO LEFT FOREARM X1 STICK USING ASEPTIC TECH,22G.
[2017-04-13 20:00] VITALS: BP 139/87
--- NOTE | 2017-04-13 20:04 | NUR ---
PATIENT'S INFUSION COMPLETED. PIV TO LEFT FOREARM SALINE LOCKED.
[2017-04-14] VITALS: BP 149/89
--- NOTE | 2017-04-14 02:00 | NUR ---
PT AWAKE SITTING ON SIDE OF BED WITH NO NEEDS. SIDE RAILS X 2. BED LOW. CALL LIGHT IN REACH.
[2017-04-14 04:00] VITALS: BP 148/86
[2017-04-14 05:34] LABS: BASOPHILS 0.1 % (0-2); EOSINOPHILS 0 % (0-7); HEMATOCRIT 45.9 % (42.0-54.0); HEMOGLOBIN 15.3 g/dL (13.5-17.5); IMMATURE GRANULOCYTES 6.7 % (0-5); LYMPHOCYTES 4.2 % (15-50); MCH 32.6 pg (26.0-34.0); MCHC 33.3 g/dL (31.0-37.0); MCV 97.7 fL (80.0-100.0); MEAN PLATELET VOLUME 10.5 fL (7.4-10.4); MONOCYTES 5.3 % (2-11); NEUTROPHILS 83.7 % (40-80); PLATELET COUNT 237 10x3/uL (130-400); RDW 13.4 % (11.5-14.5); WBC 15.9 10x3/uL (4.8-10.8)
[2017-04-14 05:53] LABS: ANION GAP 16.2 mmol/L (8-16); CALCIUM 7.9 mg/dL (8.5-10.1); CREATININE - SERUM 1.1 mg/dL (0.6-1.3); POTASSIUM - SERUM 4.2 mmol/L (3.5-5.1)
[2017-04-14] MEDS ORDERED: NYSTATIN ORAL SU5 ML PO (06:38)
[2017-04-14] MEDS ORDERED: PULMICORT0.5 MG/21 UPD (06:39)
[2017-04-14] MEDS ORDERED: MUCOMYST 20200 MG/M2 INH (06:40)
[2017-04-14] MEDS ORDERED: STERAPRED DS 1210 MG PO (06:40)
--- NOTE | 2017-04-14 07:16 | NUR ---
REPORT RECEIVED FROM COLORING MACHINE OPERATOR NURSE. CALL LIGHT IN REACH.
--- NOTE | 2017-04-14 07:55 | NUR ---
IV DC'D WITH TIP INTACT.
[2017-04-14 08:45] VITALS: BP 156/81
--- NOTE | 2017-04-14 09:10 | NUR ---
ASSESSMENT COMPLETED. AM MEDS ADMINISTERED. REFUSES SCDs. CALL LIGHT IN REACHL. WILL CONTINUE WITH PLAN OF CARE.
--- NOTE | 2017-04-14 10:11 | NUR ---
CM REASSESSMENT: PATIENT IS DISCHARGING HOME TODAY / FAMILY DRIVING HIM. PATIENT REFUSED HOME HEALTH AND HAD NO OTHER NEEDS FOR DISCHARGE.
--- NOTE | 2017-04-14 11:34 | NUR ---
IN BED WITH EYES CLOSED AT THIS TIME. RESP EVEN AND UNLABORED. CALL LIGHT IN REACH.
[2017-04-14] MEDS ORDERED: MUCINEX DM ER1 EAC1 PO (13:28)
--- NOTE | 2017-04-14 13:28 | NUR ---
XANAX PO PER ANXIETY. OFFERED COUGH MED BUT REFUSED. NYSTATIN PO. TELEMETRY REMOVED AFTER NOTIFYING STOCK LETTERER.
[2017-04-14] MEDS ORDERED: PREDNISONE10 MG PO (13:31)
--- NOTE | 2017-04-14 14:46 | NUR ---
DC INSTRUCTIONS EXPLAINED TO PATIENT AND . BOTH VERBALIZED UNDERSTANDING. RXs FOR PLAVIX, LASIX, POTASSIUM, DALIRESP, AND SINGULAIR CALLED IN TO [facility] D/T PATIENT NOT HAVING ANY AT HOME.
--- NOTE | 2017-04-14 14:50 | NUR ---
DC'D TO VEHICLE WITH VIA WC.
--- NOTE | 2017-04-14 14:55 | NUR ---
CALLED [facility] AND CANCELLED RX FOR PLAVIX. SPOKE WITH [facility] AGAIN. FLORA WALLS, LOOKED BACK IN OLD RECORDS AND NOTICED THAT PATIENT WAS TAKEN OFF OF THAT PER DR. DORADO. ADMITTING NURSE DID NOT TAKE MED OFF OF PATIENT'S HOME MED REC.
[2017-04-14 17:11] LABS: AFB SPECIMEN PROCESSING Concentration (())
[2017-04-16 12:11] LABS: FUNGUS STAIN Final report (())
[2017-04-20 10:19] LABS: FUNGUS STAIN RESULT 1 Yeast observed (())
[2017-04-20 15:18] LABS: FUNGUS CULTURE RESULT 1 Candida albicans (())
[2017-05-11 06:14] LABS: FUNGUS MYCOLOGY CULTURE Final report (())
[2017-06-04 12:18] LABS: ACID FAST CULTURE Negative (()); ACID FAST SMEAR Negative (())
== END 2017-04-14 14:50 | disposition home or self-care (01) | DRG 177 ==
LOC: D.ER 02:24 → D.MS 04:15
PROVIDERS: Family Medicine; Internal Medicine Pulmonary Disease; ADMIT Family Medicine
PROC: 0BC48ZZ Extirpation of Matter from Right Upper Lobe Bronchus, Via Natural or Artificial Opening Endoscopic (ICD-10-PCS; 2017-04-12)
PROC: 0BC88ZZ Extirpation of Matter from Left Upper Lobe Bronchus, Via Natural or Artificial Opening Endoscopic (ICD-10-PCS; principal; 2017-04-12 13:45)
DX: J15.6 Pneumonia due to other Gram-negative bacteria (principal); J96.01 Acute respiratory failure with hypoxia; J44.0 Chronic obstructive pulmonary disease with (acute) lower respiratory infection; J44.1 Chronic obstructive pulmonary disease with (acute) exacerbation; J98.11 Atelectasis; B37.0 Candidal stomatitis; T17.590A Other foreign object in bronchus causing asphyxiation, initial encounter; J20.9 Acute bronchitis, unspecified; Z87.891 Personal history of nicotine dependence

== ENCOUNTER → 2017-08-05 09:48 | Outpatient (CLI) | payer MEDICARE ==
[2017-04-05 14:40] VITALS: BMI 31.6
[~2017-08-05 09:48] MED LIST changes: +CLEOCIN HCL150 MG PO; +GABAPENTIN100 MG PO; +ISOSORBIDE MONO30 M1 PO; +MUCINEX DM ER1 EAC1 PO; +MUCOMYST 20200 MG/M2 INH; +NYSTATIN ORAL SU5 ML PO; +OMNICEF300 MG PO; +PULMICORT0.5 MG/21 UPD; +STERAPRED DS 1210 MG PO; +VIBRAMYCIN 100100 MG PO; +VITAMIN D250000 UNIT PO
== END | disposition home or self-care (01) ==
LOC: D.RT 08-03 10:00
DX: J44.9 Chronic obstructive pulmonary disease, unspecified (principal)

== ENCOUNTER → 2017-09-03 08:18 | Outpatient (CLI) | payer MEDICARE ==
[~2017-09-03] VITALS: Ht 170.2 cm; Wt 95.5 kg
--- NOTE | ~2017-09-03 | HEMODYNAMI ---
PATIENT:ANNMARIE COATES MEDICAL RECORD: [id number] : 44 LOCATION:[facility] ADMISSION DATE: 09/03/17 Generatedon:09/03/201713:12 Patient name: ANNMARIE COATES Patient #: [id number] SSN: : 1940 Date of study: 09/03/2017 Page: Of Hemodynamic Procedure Report Patient Data Patient Demographics Procedure consent was obtained First Name: ANNMARIE Gender: Male Last Name: JAXON : 1940 [facility] Initial: SUNITHA Age: 76 year(s) Patient #: [id number] Race: Additional ID: [id number] Contact details [address]: [address] [place] [address] State: [place] [facility] [place]: [address] Admission Admission Data Admission Date: 09/03/2017 Admission Time: 8:18 Procedure Procedure Types Cath Procedure Diagnostic Procedure LHC LHC w/Coronaries PCI Procedure Coronary Stent Coronary Stent Initial Procedure Description Procedure Date Procedure Date: 09/03/2017 Procedure Start Time: 12:55 Procedure End Time: 13:07 Procedure Staff Name Function Armin Gore MD Performing Physician Shannan Flores RT Monitor North Guerrero RN Nurse Libra Lagos RT Scrub Procedure Data Cath Procedure Fluoroscopy Diagnostic fluoroscopy Total fluoroscopy Time: 2.7 time: 2.7 min min Diagnostic fluoroscopy Total fluoroscopy dose: 713 dose: 713 mGy mGy Contrast Material Contrast Material Type Amount (ml) Isovue 300 67 Entry Location Entry Primary Successful Side Size Upsize Upsize Entry Closure Succes sful Closure Location (Fr) 1 (Fr) 2 (Fr) Remarks Device Remarks Femoral Right 5 Fr 6 Fr Exoseal artery Short Estimated blood loss: 5 ml Diagnostic catheters Device Type Used For End Catheter Placement MULTIPACK Pigtail 5 Fr Multi-vessel catheter Angiography MULTIPACK JL 4.0 5Fr Left Coronary catheter Angiography MULTIPACK 3DRC 5Fr Right Coronary catheter Angiography DIAGNOSTIC JL 4.0 5Fr Left Coronary catheter ([id number]) Angiography Procedure Complications No complications Procedure Medications Medication Administration Route Dosage Oxygen NC 2 l/min Lidocaine 2% added to field 20 Heparin Flush Bag added to field 2 bags (1000units/500ml NS) 0.9% NaCl I.V. 100 ml/hr Versed I.V. 2 mg Fentanyl I.V. 50 mcg Heparin Bolus I.V. 4000 units Versed I.V. 1 mg Fentanyl I.V. 50 mcg Versed I.V. 1 mg Fentanyl I.V. 50 mcg Hemodynamics Rest Heart Rate: 80 (bpm) Pressure Samples Time Site Value (mmHg) Purpose Heart Use Rate(bpm) 12:56 LV 20/-14,-12 Snapshot 72 Snapshots Pre Cath Intra NCS Post Cath Vital Signs Time Heart Resp SPO2 etCO2 NIBP (mmHg) Rhythm Pain Sedation Rate (ipm) (%) (mmHg) Status Level (bpm) 12:40:41 77 24 95 0 133/100(114) NSR 0 (11) 10(A) , No pain 12:44:51 78 19 96 29.7 124/93(112) NSR 0 (11) 10(A) , No pain 12:48:57 75 13 97 33.4 132/92(115) NSR 0 (11) 10(A) , No pain 12:53:04 75 16 97 34.9 136/94(109) NSR 0 (11) 10(A) , No pain 12:57:14 77 13 97 37.1 132/84(99) NSR 0 (11) 10(A) , No pain 13:01:22 76 13 97 37.8 135/89(110) NSR 0 (11) 9(A) , No pain 13:05:28 77 14 97 36.4 128/90(108) NSR 0 (11) 9(A) , No pain 13:10:05 79 14 98 36.3 122/78(102) NSR 0 (11) 10(A) , No pain Medications Time Medication Route Dose Verified Delivered Reason Notes Ef fectiveness by by 12:42:56 Oxygen NC 2 Armin Kat used for l/min Sofía Guerrero hydraulic technician 12:43:03 Lidocaine 2% added 20ml Armin Funez for local to vial Sofía Gore MD anesthetic field 12:43:09 Heparin Flush added 2 Armin Armin used for Bag to bags Sofía Gore MD procedure (1000units/500ml field NS) 12:43:18 0.9% NaCl I.V. 100 Armin Kat Per ml/hr Sofía Guerrero RN physician 12:55:19 Versed I.V. 2 mg Armin Kat for Sofía Guerrero RN sedation 12:55:25 Fentanyl I.V. 50 Armin Jaimesie for mcg Sofía Guerrero RN sedation 13:00:36 Versed I.V. 1 mg Armin Kat for Sofía Guerrero RN sedation 13:00:39 Fentanyl I.V. 50 Armin Jaimesie for mcg Sofía Guerrero RN sedation 13:02:32 Heparin Bolus I.V. 4000 Armin Jaimesie used for verified units Sofía Guerrero RN procedure with dr gore 13:04:01 Fentanyl I.V. 50 Armin Jaimesie for mcg Sofía Guerrero RN sedation 13:04:45 Versed I.V. 1 mg Armin Kat for Sofía Guerrero RN sedation Procedure Log Time Note 12:15:06 North Guerrero RN sent for patient. Start room use. 12:27:07 Time tracking: Regular hours 12:27:12 Plan of Care:Hemodynamics will remain stable., Cardiac rhythm will remain stable., Comfort level will be maintained., Respiratory function will remain adequate., Patient/ family verbilizes understanding of procedure., Procedure tolerated without complication., Recovers from procedure without complications.. 12:28:44 Patient received from Pre/Post Procedure Room to [facility] 2 Alert and oriented. Tansferred to table in Supine position. 12:28:45 Warm blankets applied, and landon hugger turned on for patient comfort. 12:28:46 Correct patient and procedure confirmed by team. 12:28:47 Signed procedure consent form obtained from patient. 12:28:48 ECG and BP/O2 sat monitors applied to patient. 12:39:45 Vital chart was started 12:39:46 Baseline sample Acquired. 12:39:51 Rhythm: sinus rhythm 12:39:54 Full Disclosure recording started 12:39:59 H&P Date Dictated: 09/03/2017 Within 30 days and on chart., H&P Addendum completed by physician on day of procedure. (MUST COMPLETE FOR ALL OUTPATIENTS). 12:40:01 Pre-procedure instructions explained to patient. 12:40:01 Pre-op teaching completed and patient verbalized understanding. 12:40:03 Family in waiting room. 12:40:11 Patient NPO since Midnight. 12:40:17 Is the patient allergic to Iodine/contrast media? No. 12:41:12 Was the patient premedicated? No 12:41:13 Is patient on blood thinner?Yes 12:41:15 ACC The patient was administered the following blood thiners within the last 24 hours: ACCPlavix 12:41:31 Patient diabetic? No. 12:41:33 Previous problem with sedation/anesthesia? No ? 12:41:35 Snore? Yes 12:41:36 Sleep apnea? No 12:41:37 Deviated septum? No 12:41:37 Opens mouth fully? Yes 12:41:38 Sticks out tongue? Yes 12:41:42 Airway obstruction? Yes copd 12:41:45 Dentures? No ? 12:41:50 Pre procedure: right dorsailis pedis pulse 1+ Palpable, but thready & weak; easily obliterated 12:41:52 Pre procedure: left dorsailis pedis pulse 1+ Palpable, but thready & weak; easily obliterated 12:41:58 IV patent on arrival in left forearm with 0.9% NaCl at [facility]. 12:42:01 Lab results completed and on chart. 12:42:09 Right groin area was prepped with chlora-prep and draped in sterile fashion 12:42:09 Alarms reviewed by R. N. 12:42:10 Sharps counted by scrub and verified by R.N. 12:42:56 Oxygen 2 l/min NC was administered by North Guerrero RN; used for procedure; 12:43:03 Lidocaine 2% 20ml vial added to field was administered by Armin Gore MD; for local anesthetic; 12:43:09 Heparin Flush Bag (1000units/500ml NS) 2 bags added to field was administered by Armin Gore MD; used for procedure; 12:43:18 0.9% NaCl 100 ml/hr I.V. was administered by North Guerrero RN; Per physician; 12:54:24 Physician arrived 12:54:25 --------ALL STOP TIME OUT------ 12:54:25 Final Timeout: patient, procedure, and site verified with staff and physician. All members of the team are in agreement. 12:54:29 Right groin site verified by team. 12:54:31 Physical assessment completed. ASA score P 2 - A patient with mild systemic disease as per Armin Gore MD. 12:54:35 Sedation plan: IV Moderate Sedation Medication:Versed, Fentanyl 12:54:58 Use device set Femoral Dx 12:54:59 ACIST Syringe (62461) opened to sterile field. 12:55:00 Bag Decanter (2002S) opened to sterile field. 12:55:00 Medline Cath Pack ([id number]) opened to sterile field. 12:55:03 DIAGNOSTIC WIRE .035 260cm J wire (156024) opened to sterile field. 12:55:06 ACIST Hand Control (50846) opened to sterile field. 12:55:06 ACIST Manifold (64518) opened to sterile field. 12:55:07 DIAGNOSTIC Multipack 5Fr catheter set (HA1286) opened to sterile field. 12:55:08 Tegaderm 4 x 4 (1626W) opened to sterile field. 12:55:19 Versed 2 mg I.V. was administered by North Guerrero RN; for sedation; 12:55:25 Fentanyl 50 mcg I.V. was administered by North Guerrero RN; for sedation; 12:55:27 SHEATH 5Fr Prelude ([id number]) opened to sterile field. 12:55:37 Procedure started. 12:55:43 Local anesthetic to right femoral artery with Lidocaine 2% by Armin Gore MD.INITIAL ACCESS ONLY 12:55:51 A 5 Fr sheath was inserted into the Right Femoral artery 12:56:09 A MULTIPACK Pigtail 5 Fr catheter was advanced over the wire and used for Multi-vessel Angiography. 12:56:27 LV hemodynamics recorded. 12:56:28 LV gram done using STEPHENS 12:56:31 Injector settings: Ml/sec: 5, Volume: 15, 12:56:42 EF : 55 % 12:57:08 Catheter removed. 12:57:15 A MULTIPACK JL 4.0 5Fr catheter was advanced over the wire and used for Left Coronary Angiography. 12:57:54 Catheter removed. unable to cannulate vessel. 12:59:02 A MULTIPACK 3DRC 5Fr catheter was advanced over the wire and used for Right Coronary Angiography. 12:59:10 RCA angiography performed. 12:59:13 Injector settings: Ml/sec: 3, Volume: 6, 12:59:29 Catheter removed. 12:59:33 A DIAGNOSTIC JL 4.0 5Fr catheter ([id number]) was advanced over the wire and used for Left Coronary Angiography. 12:59:51 LCA angiography performed. 13:00:14 Injector settings: Ml/sec: 3, Volume: 6, 13:00:25 Catheter removed. 13:00:28 Proceeding to intervention. 13:00:36 Versed 1 mg I.V. was administered by North Guerrero RN; for sedation; 13:00:39 Fentanyl 50 mcg I.V. was administered by North Guerrero RN; for sedation; 13:00:51 GUIDE 6FR XBLAD 4.0 catheter ([id number]) opened to sterile field. 13:00:52 CHOICE PT Extra Support 182cm wire ([id number]) opened to sterile field. 13:00:52 INFLATOR Merit BasixCompak (QH8019) opened to sterile field. 13:00:53 SHEATH 6Fr Prelude ([id number]) opened to sterile field. 13:01:02 Sheath upsized to a 6 Fr Short. 13:01:09 6 Fr xblad 4 guide catheter was inserted over the wire 13:02:02 choice pt wire advanced. 13:02:21 Wire advanced across lesion. 13:02:32 Heparin Bolus 4000 units I.V. was administered by North Guerrero RN; used for procedure; verified with dr gore 13:04:01 Fentanyl 50 mcg I.V. was administered by North Guerrero RN; for sedation; 13:04:06 Place stent Inflation Number: 1 A CAMILLE RX 3.0 x 18 stent ([id number]) was prepped and advanced across the Prox LAD. The stent was deployed at 21 NOEMI for 0:10 (min:sec). 13:04:30 Inflation number: 2 The stent balloon was then re-inflated across the Prox LAD to 19 NOEMI for 0:10 (min:sec). 13:04:45 Versed 1 mg I.V. was administered by North Guerrero RN; for sedation; :05:19 Stent catheter was removed intact over wire. 13:05:20 Wire removed. 13:05:20 Guide catheter removed. 13:05:56 EXOSEAL 6Fr (EX600) opened to sterile field. 13:06:06 Sheath removed intact; hemostasis achieved with Exoseal to the Right Femoral artery. 13:06:08 Procedure ended.(Physican Out) 13:06:47 Fluoroscopy time 02.70 minutes. 13:06:51 Fluoroscopy dose: 713 mGy 13:06:51 Flurop Dose total: 713 13:06:55 Contrast amount:Isovue 300 67ml. 13:06:57 Sharps counted by scrub and verified by R.N. 13:06:57 Insertion/operative site no bleeding no hematoma. 13:07:00 Post-op/insertion site Right Femoral artery dressed using a 4 x 4 and Tegaderm. 13:07:02 Post right femoral artery:stable 13:07:05 Post procedure rhythm: unchanged. 13:07:08 Estimated blood loss: 5 ml 13:07:09 Post procedure instruction explained to patient.Patient verbalizes understanding. 13:07:10 Patient needs reinforcement of post procedure teaching. 13:07:34 Procedure type changed to Cath procedure, Diagnostic procedure, LHC, LHC w/Coronaries, PCI procedure, Coronary Stent, Coronary Stent Initial 13:07:42 Procedure and supply charges have been captured, reviewed, submitted and are correct. 13:07:46 Procedure Complication : No complications 13:07:48 Vital chart was stopped 13:07:48 See physician's report for complete and final results. 13:07:50 Report given to Pre/Post Procedure Room. 13:07:53 Patient transfered to Pre/Post Procedure Room with Stretcher. 13:07:55 Procedure ended. 13:07:55 Full Disclosure recording stopped 13:08:19 ACC-PCI Only Patient was given prescriptions, or instructed by Armin Gore MD to start/continue the following medications upon discharge: Plavix 13:08:24 End room use (Document Last) Intervention Summary Intervention Notes Time ActionType Lesion and Equipment Used Action# Pressure Duration Attributes 13:04:[address] stent Prox LAD CAMILLE RX 3.0 x 1 21 00:10 18 stent ([id number]) 13:04:30 Reinflate Prox LAD CAMILLE RX 3.0 x 2 19 00:10 stent 18 stent balloon ([id number]) Device Usage Item Name Manufacture Quantity Catalog Number Hospital Part Current M inimal Lot# / Charge Number Stock Stock Serial# Code ACIST Syringe Acist 1 96980 088250 447119 302587 2 0 (50291) Medical Systems Inc Bag Decanter Microtek 1 422729 85816 153961 5 () Medical Inc. Medline Cath Cardinal 1 [id number] 397044 15408 663661 5 Pack Health ([id number]) DIAGNOSTIC St [place]iz 1 234153 237546 800475 390214 3 0 WIRE .035 260cm J wire (252625) ACIST Hand Acist 1 79795 189312 628733 827598 5 Control Medical (60485) Systems Inc ACIST Manifold Acist 1 29667 629766 530980 162089 5 (66009) Medical Systems Inc DIAGNOSTIC Cardinal 1 CN2020 805130 92868 672995 3 0 Multipack 5Fr Health catheter set (QU4077) Tegaderm 4 x 4 3M 1 1626W 432876 151708 506820 5 (1626W) SHEATH 5Fr Merit 1 [id number] 127779 658235 520227 5 Prelude Medical ([id number]) MULTIPACK Cardinal 1 [id number] 5 Pigtail 5 Fr Health catheter MULTIPACK JL Cardinal 1 034208 5 4.0 5Fr Health catheter MULTIPACK 3DRC Cardinal 1 872419 5 5Fr catheter Health DIAGNOSTIC JL Cardinal 1 [id number] 791210 892828 539219 1 0 4.0 5Fr Health catheter (916145U) GUIDE 6FR Cardinal 1 [id number] 044233 375109 034485 3 XBLAD 4.0 Health catheter (34643914) CHOICE PT [employer]entry 1 [id number] 205872 113161 108636 5 Extra Support Scientific 182cm wire (1351627P4) INFLATOR Merit Merit 1 BV9230 876134 153407 074234 1 5 BasixQuippi Medical (YP6071) SHEATH 6Fr Merit 1 [id number] 384307 470663 215465 5 Prelude Medical ([id number]) CAMILLE RX 3.0 x Medtronic 1 [id number] 146417 2092688 620017 5 [id number] 18 stent ([id number]) EXOSEAL 6Fr Cardinal 1 EX600 571783 745024 116116 1 0 (EX600) Health Signature Audit [place] Stage Time Signature Unsigned Intra-Procedure 09/03/2017 Shannan Flores 1:12:34 PM RT(R) Signatures Monitor : Shannan Flores RT Signature : Date : Time : [id number] [place] [address]
--- NOTE | ~2017-09-03 | OP ---
PATIENT NAME: ANNMARIE COATES MEDICAL RECORD: [id number] :44 LOCATION:D.CAT ADMISSION DATE: SURGEON: IZABELA DORADO MD DATE OF OPERATION: 09/03/2017 PROCEDURES: 1. PTCA stent LAD. 2. Left heart catheterization. 3. Selective coronary angiography. 4. Left ventriculogram. INDICATION: Angina and coronary artery disease. PROCEDURE IN DETAIL: After informed consent was obtained and after a detailed description of risks, benefits as well as alternative therapies, the patient elected to proceed with angiogram and angioplasty. The right femoral area was prepped and draped in normal sterile fashion. The right femoral artery was cannulated via modified Seldinger technique with placement of 6-Czech sheath. All catheters exchanged through this sheath. FINDINGS: The left ventriculogram was performed in standard 30-degree STEPHENS view, reveals good cardiac wall motion throughout all segments. Overall ejection fraction 55% to 60%. SELECTIVE CORONARY ANGIOGRAPHY: 1. Left main is with no significant angiographic disease. 2. Left anterior descending has 80% stenosis proximally, otherwise only moderate irregularities. 3. The left circumflex has moderate irregularities, but no flow-limiting stenosis. 4. Right coronary has moderate irregularities, but no flow-limiting stenosis. PTCA STENT OF THE LAD: The stent used was a 3.0 x 18 mm Florencio taken to 21 atmospheres. Result was 0% residual stenosis. OVERALL IMPRESSION: Successful percutaneous transluminal angioplasty stent of the left anterior descending going from 80% initial stenosis to 0% residual stenosis. TRANSINT:[id number] Voice Confirmation ID: [id number] DOCUMENT ID: [id number] IZABELA DORADO MD at 0956 CC: [id number] DICTATION DATE: 09/03/17 1309 NETWORKING TECHNOLOGY INSTRUCTOR: 09/03/17 1329 DEP CLI 09/03/17 [place] [address]
[2017-09-03 09:25] VITALS: BP 129/92; Ht 170.2 cm; Wt 95.5 kg
[2017-09-03 09:56] LABS: ANION GAP 17.2 mmol/L (8-16); CALCIUM 8.8 mg/dL (8.5-10.1); CARBON DIOXIDE 21.8 mmol/L (21.0-32.0); CREATININE - SERUM 1.3 mg/dL (0.6-1.3)
[2017-09-03 10:15] LABS: BASOPHILS 0.5 % (0-2); EOSINOPHILS 2.3 % (0-7); HEMATOCRIT 46.4 % (42.0-54.0); HEMOGLOBIN 16.3 g/dL (13.5-17.5); IMMATURE GRANULOCYTES 0.7 % (0-5); LYMPHOCYTES 31.9 % (15-50); MCH 32.8 pg (26.0-34.0); MCHC 35.1 g/dL (31.0-37.0); MCV 93.4 fL (80.0-100.0); MEAN PLATELET VOLUME 10.4 fL (7.4-10.4); MONOCYTES 9.7 % (2-11); NEUTROPHILS 54.9 % (40-80); RBC 4.97 10x6/uL (4.20-6.10); RDW 13.1 % (11.5-14.5); WBC 8.5 10x3/uL (4.8-10.8)
[2017-09-03 10:16] LABS: PLATELET COUNT 290 10x3/uL (130-400)
== END | disposition home or self-care (01) ==
LOC: D.CATH 08:18
PROVIDERS: Internal Medicine Interventional Cardiology
DX: I25.119 Atherosclerotic heart disease of native coronary artery with unspecified angina pectoris (principal); Z01.812 Encounter for preprocedural laboratory examination
CPT/HCPCS: 93458; C9600

== ENCOUNTER 2017-09-22 07:52 | Outpatient (CLI) | payer MEDICARE ==
[~2017-09-22] VITALS: Ht 170.2 cm; Wt 97.7 kg
--- NOTE | ~2017-09-22 | OP ---
PATIENT NAME: ANNMARIE COATES MEDICAL RECORD: [id number] :44 LOCATION:D.CAT ADMISSION DATE: SURGEON: IZABELA DORADO MD DATE OF OPERATION: 09/22/2017 PROCEDURES: 1. Left heart catheterization. 2. Selective coronary angiography. 3. Left ventriculogram. INDICATION: Chest pain compatible with angina, coronary artery disease, previous PTCA stent. PROCEDURE IN DETAIL: After informed consent was obtained and after detailed explanation of risks, benefits as well as alternative therapies, the patient elected to proceed with angiogram and heart catheterization. The right femoral area is prepped and draped in normal sterile fashion. The right femoral artery was cannulated via modified Seldinger technique with placement of 5-Serbian sheath. All catheters exchanged through this sheath. FINDINGS: Left ventriculogram was performed in standard 30-degree STEPHENS view reveals good cardiac wall motion throughout all segments. Ejection fraction is 60%. SELECTIVE CORONARY ANGIOGRAPHY: 1. Left main is with no significant angiographic disease. 2. Left anterior descending has multiple previously placed stents. These are widely patent with no significant restenosis. No disease elsewise throughout the LAD or its branches. 3. Left circumflex has moderate irregularities, but no flow-limiting stenosis. 4. Right coronary has moderate irregularities, but no flow-limiting stenosis. OVERALL IMPRESSION: Wide patency of the previously placed stents, no disease elsewise. Continue medical management of the coronary artery disease and cardiac risk factors. TRANSINT:[id number] Voice Confirmation ID: [id number] DOCUMENT ID: [id number] IZABELA DORADO MD at 1006 CC: [id number] DICTATION DATE: 09/22/17 1229 OPERATIONS ENGINEER: 09/22/17 1402 DEP CLI 09/22/17 [place] [address]
--- NOTE | ~2017-09-22 | HEMODYNAMI ---
PATIENT:ANNMARIE COATES MEDICAL RECORD: [id number] : 44 LOCATION:[facility] ADMISSION DATE: 09/22/17 Generatedon:09/22/201712:30 Patient name: ANNMARIE COATES Patient #: [id number] SSN: : 1940 Date of study: 09/22/2017 Page: Of Hemodynamic Procedure Report Patient Data Patient Demographics Procedure consent was obtained First Name: ANNMARIE Gender: Male Last Name: JAXON : 1940 [facility] Initial: SUNITHA Age: 76 year(s) Patient #: [id number] Race: Additional ID: [id number] Contact details Address: [address] [place] [address] State: [place] City: [facility] [place] Zip code: [address] Past Medical History Allergies: No known allergies Admission Admission Data Admission Date: 09/22/2017 Admission Time: 7:52 Height (in.): 5.7 BSA: 0.35 (m2) Height (cm.): 14.48 BMI: 4630.87 (kg/m2) Weight (lbs.): 214 Weight (kg.): 97.07 Lab Results Lab Result Date: 09/22/2017 Lab Result Time: 0:00 Biochemistry Name Units Result Min Max BUN mg/dl 15 --(--*-)-- 7 18 Creatinine mg/dl 1.3 --(---*)-- 0.6 1.3 CBC Name Units Result Min Max Hemoglobin g/dl 15.9 --(--*-)-- 13.5 17.5 Procedure Procedure Types Cath Procedure Diagnostic Procedure LHC LHC w/Coronaries Peripheral Cath Diagnostic Procedure Cath Peripheral Hubyy-Ngbhpou-Agt-Off Procedure Description Procedure Date Procedure Date: 09/22/2017 Procedure Start Time: 12:16 Procedure End Time: 12:29 Procedure Staff Name Function Armin Gore MD Performing Physician Joanne Peraza RT Monitor Dale Martinez RT Scrub Buffie Guerrero RN Nurse Procedure Data Cath Procedure Fluoroscopy Diagnostic fluoroscopy Total fluoroscopy Time: 1.7 time: 1.7 min min Diagnostic fluoroscopy Total fluoroscopy dose: 591 dose: 591 mGy mGy Contrast Material Contrast Material Type Amount (ml) Isovue 300 103 Entry Location Entry Primary Successful Side Size Upsize Upsize Entry Closure Succes sful Closure Location (Fr) 1 (Fr) 2 (Fr) Remarks Device Remarks Femoral Right 6 Fr Exoseal artery Short Estimated blood loss: 5 ml Diagnostic catheters Device Type Used For End Catheter Placement MULTIPACK Pigtail 5 Fr Procedure catheter MULTIPACK JL 4.0 5Fr Procedure catheter MULTIPACK 3DRC 5Fr Procedure catheter Procedure Complications No complications Procedure Medications Medication Administration Route Dosage Oxygen NC 2 l/min Lidocaine 2% added to field 20 Heparin Flush Bag added to field 2 bags (1000units/500ml NS) 0.9% NaCl I.V. 100 ml/hr Versed I.V. 1 mg Fentanyl I.V. 50 mcg Versed I.V. 1 mg Fentanyl I.V. 50 mcg Versed I.V. 1 mg Versed I.V. 1 mg Hemodynamics Rest BSA: 0.35 (m2) HGB: 15.9 (g/dl) O2 Consumption: Estimated: 41.59 (ml/min) O2 Con sumption indexed: Estimated:118.83 (ml/min/m) Heart Rate: 80 (bpm) Snapshots Pre Cath Intra NCS Post Cath Vital Signs Time Heart Resp SPO2 etCO2 NIBP (mmHg) Rhythm Pain Sedation Rate (ipm) (%) (mmHg) Status Level (bpm) 11:55:21 80 22 96 0 138/86(101) NSR 0 (11) 10(A) , No pain 11:59:38 82 28 96 33.8 139/89(103) NSR 0 (11) 10(A) , No pain 12:03:53 76 17 95 36.8 149/90(110) NSR 0 (11) 10(A) , No pain 12:08:22 77 16 97 30 136/50(70) NSR 0 (11) 10(A) , No pain 12:12:32 76 17 96 34.5 132/91(114) NSR 0 (11) 10(A) , No pain 12:16:44 75 17 96 34.5 137/83(111) NSR 0 (11) 9(A) , No pain 12:21:00 77 14 97 36 136/87(101) NSR 0 (11) 9(A) , No pain 12:25:14 75 17 97 33.8 143/87(108) NSR 0 (11) 10(A) , No pain 12:29:30 74 16 97 34.5 136/89(100) NSR 0 (11) 10(A) , No pain Medications Time Medication Route Dose Verified Delivered Reason Notes Effe ctiveness by by 11:55:54 Oxygen NC 2 Armin Buffie used for l/min Sofía Guerrero RN procedure 11:56:04 Lidocaine 2% added 20ml Armin Armin for local to vial Sofía Gore MD anesthetic field 11:56:09 Heparin Flush added 2 Armin Armin used for Bag to bags Sofía Gore MD procedure (1000units/500ml field NS) 11:56:18 0.9% NaCl I.V. 100 Armintalat Jaimesie Per ml/hr Sofía Guerrero RN physician 12:14:01 Versed I.V. 1 mg Armin Kat for Sofía Guerrero RN sedation 12:14:07 Fentanyl I.V. 50 Armin Buffie for mcg Sofía Guerrero RN sedation 12:16:43 Versed I.V. 1 mg Armintalat Kat for Sofía Guerrero RN sedation 12:16:47 Fentanyl I.V. 50 Armin Jaimesie for mcg Sofía Guerrero RN sedation 12:20:25 Versed I.V. 1 mg Armin Kat for Sofía Guerrero RN sedation 12:24:26 Versed I.V. 1 mg Armin Kat for Sofía Guerrero RN sedation Procedure Log Time Note 11:41:53 Plan of Care:Hemodynamics will remain stable., Cardiac rhythm will remain stable., Comfort level will be maintained., Respiratory function will remain adequate., Patient/ family verbilizes understanding of procedure., Procedure tolerated without complication., Recovers from procedure without complications.. 11:41:54 Time tracking: Regular hours (M-F 7:00 - 5:00) 11:41:55 Signed procedure consent form obtained from patient. 11:42:43 North Guerrero RN sent for patient. Start room use. 11:43:40 Patient allergic to No known allergies 11:43:56 Patient Height : 5.7 inches 11:44:00 Patient Weight : 214 lbs 11:46:41 Patient received from Pre/Post Procedure Room to CCL 2 Alert and oriented. Tansferred to table in Supine position. 11:46:42 Warm blankets applied, and landon hugger turned on for patient comfort. 11:46:42 Correct patient and procedure confirmed by team. 11:46:45 ECG and BP/O2 sat monitors applied to patient. 11:54:09 Vital chart was started 11:54:10 Baseline sample Acquired. 11:54:15 Rhythm: sinus rhythm 11:54:18 Full Disclosure recording started 11:55:36 H&P Date Dictated: 09/20/2017 Within 30 days and on chart., H&P Addendum completed by physician on day of procedure. (MUST COMPLETE FOR ALL OUTPATIENTS). 11:55:38 Pre-procedure instructions explained to patient. 11:55:38 Pre-op teaching completed and patient verbalized understanding. 11:55:40 Family in patients room. 11:55:42 Patient NPO since Midnight. 11:55:48 Is the patient allergic to Iodine/contrast media? No. 11:55:52 Is patient on blood thinner?Yes 11:55:54 Oxygen 2 l/min NC was administered by North Guerrero RN; used for procedure; 11:55:55 ACC The patient was administered the following blood thiners within the last 24 hours: ACCPlavix 11:55:59 Patient diabetic? No. 11:56:04 Lidocaine 2% 20ml vial added to field was administered by Armin Gore MD; for local anesthetic; 11:56:08 Previous problem with sedation/anesthesia? No ? 11:56:09 Heparin Flush Bag (1000units/500ml NS) 2 bags added to field was administered by Armin Gore MD; used for procedure; 11:56:09 Snore? Yes 11:56:11 Sleep apnea? No 11:56:12 Deviated septum? No 11:56:13 Opens mouth fully? Yes 11:56:14 Sticks out tongue? Yes 11:56:17 Airway obstruction? Yes COPD 11:56:18 0.9% NaCl 100 ml/hr I.V. was administered by North Guerrero RN; Per physician; 11:56:21 Dentures? No ? 11:56:24 Pre procedure: right dorsailis pedis pulse 1+ Palpable, but thready & weak; easily obliterated 11:56:34 Patient pain scale 2/10 ?. 11:56:40 IV patent on arrival in left hand with 0.9% NaCl at [facility]. 11:57:09 Lab Result : BUN 15 mg/dl 11:57:09 Lab Result : Creatinine 1.3 mg/dl 11:57:09 Lab Result : Hemoglobin 15.9 g/dl 11:57:12 Lab results completed and on chart. 11:57:14 Right groin area was prepped with chlora-prep and draped in sterile fashion 11:57:15 Alarms reviewed by R. N. 11:57:16 Sharps counted by scrub and verified by R.N. 12:04:59 Use device set Femoral Dx 12:05:00 ACIST Syringe (96300) opened to sterile field. 12:05:00 Bag Decanter (2002S) opened to sterile field. 12:05:02 ACIST Hand Control (63098) opened to sterile field. 12:05:02 ACIST Manifold (54988) opened to sterile field. 12:05:03 Tegaderm 4 x 4 (1626W) opened to sterile field. 12:05:05 Medline Cath Pack ([id number]) opened to sterile field. 12:05:08 DIAGNOSTIC WIRE .035 260cm J wire (734138) opened to sterile field. 12:05:11 DIAGNOSTIC Multipack 5Fr catheter set ([id number]) opened to sterile field. 12:05:25 SHEATH 6FR Procious ([id number]) opened to sterile field. 12:10:08 Zero performed for pressure channel P1 12:13:30 --------ALL STOP TIME OUT------ 12:13:31 Final Timeout: patient, procedure, and site verified with staff and physician. All members of the team are in agreement. 12:13:33 Right groin site verified by team. 12:13:37 Physical assessment completed. ASA score P 2 - A patient with mild systemic disease as per Armin Gore MD. 12:13:42 Sedation plan: IV Moderate Sedation Medication:Versed, Fentanyl 12:14:01 Versed 1 mg I.V. was administered by North Guerrero RN; for sedation; 12:14:07 Fentanyl 50 mcg I.V. was administered by North Guerrero RN; for sedation; 12:15:11 Procedure started. 12:16:14 Local anesthetic to right femoral artery with Lidocaine 2% by Armin Gore MD.INITIAL ACCESS ONLY 12:16:31 A 6 Fr Short sheath was inserted into the Right Femoral artery 12:16:43 Versed 1 mg I.V. was administered by North Guerrero RN; for sedation; 12:16:47 Fentanyl 50 mcg I.V. was administered by North Guerrero RN; for sedation; 12:16:49 A MULTIPACK Pigtail 5 Fr catheter was advanced over the wire and used for Procedure. 12:17:22 LV gram done using STEPHENS 12:17:26 Injector settings: Ml/sec: 10, Volume: 20, 12:17:42 EF : 55 % 12:17:56 PIGTAIL PULLED DOWN FOR AFRO 12:18:22 Abdominal angiogram w/ runoff was performed. 12:18:29 Left leg runoff performed. 12:18:44 Right leg runoff performed. 12:19:01 Catheter exchanged over wire. 12:19:23 Procedure type changed to Cath procedure, Diagnostic procedure, LHC, LHC w/Coronaries, Peripheral Cath Diagnostic Procedure, Cath Peripheral, Eanru-Aiioyzd-Ogv-Off 12:19:31 A MULTIPACK JL 4.0 5Fr catheter was advanced over the wire and used for Procedure. 12:20:25 Versed 1 mg I.V. was administered by North Guerrero RN; for sedation; 12:20:42 UNABLE TO ENGAGE LEFT CORONARY 12:20:44 Catheter exchanged over wire. 12:20:59 A MULTIPACK 3DRC 5Fr catheter was advanced over the wire and used for Procedure. 12:21:34 GUIDE 6FR XBLAD 4.0 catheter ([id number]) opened to sterile field. 12:21:43 RCA angiography performed. 12:22:02 Catheter exchanged over wire. 12:22:13 6 Fr XBLAD 4 guide catheter was inserted over the wire 12:23:15 LCA angiography performed. 12:23:18 Catheter removed. 12:23:32 EXOSEAL 6Fr (EX600) opened to sterile field. 12:24:04 Sheath removed intact; hemostasis achieved with Exoseal to the Right Femoral artery. 12:24:15 Procedure ended.(Physican Out) 12:24:26 Versed 1 mg I.V. was administered by North Guerrero RN; for sedation; 12::32 Fluoroscopy time 01.70 minutes. 12::38 Fluoroscopy dose: 591 mGy 12:24:38 Flurop Dose total: 591 12:24:41 Contrast amount:Isovue 300 103ml. 12:24:44 Sharps counted by scrub and verified by R.N. 12:25:09 Post-op/insertion site Right Femoral artery dressed using a 4 x 4 and Tegaderm. 12:25:13 Post right femoral artery:stable, soft, clean and dry 12:25:20 Post-procedure physical assessment completed. ASA score P 2 - A patient with mild systemic disease as per Armin Gore MD. 12:25:28 Post procedure rhythm: unchanged. 12::31 Estimated blood loss: 5 ml 12:25:32 Post procedure instruction explained to patient.Patient verbalizes understanding. 12::32 Patient needs reinforcement of post procedure teaching. 12:29:03 Procedure and supply charges have been captured, reviewed, submitted and are correct. 12:29:06 Procedure Complication : No complications 12:29:09 Vital chart was stopped 12::09 See physician's report for complete and final results. 12:29:11 Report given to Pre/Post Procedure Room. 12:29:14 Patient transfered to Pre/Post Procedure Room with Bed. 12:29:16 Procedure ended. 12:29:16 Full Disclosure recording stopped 12:29:22 End room use (Document Last) Device Usage Item Name Manufacture Quantity Catalog Hospital Part Current Minimal L ot# / Number Charge Number Stock Stock Serial# Code ACIST Acist 1 13821 [id number] 529832 [id number] 20 Syringe Medical (05451) Systems Inc Bag Microtek 1 384755 10382 594219 5 Decanter Medical Inc. () ACIST Hand Acist 1 25398 427752 625546 063796 5 Control Medical (76340) Systems Inc ACIST Acist 1 84865 320617 103482 826640 5 Manifold Medical (59354) Systems Inc Tegaderm 4 3M 1 1626W 089452 100939 795347 5 x 4 (1626W) Medline Cardinal 1 [id number] 650864 81025 609674 5 Cath Pack Health ([id number]) DIAGNOSTIC [facility] [place] 1 909064 880164 682330 631411 30 WIRE .035 260cm J wire (360347) DIAGNOSTIC Cardinal 1 [id number] 134796 64465 187452 30 Multipack Health 5Fr catheter set (IU6322) SHEATH 6FR Terumo 1 YFC275 675167 426187 586199 40 Procious (KDX486) MULTIPACK Cardinal 1 949717 5 Pigtail 5 Health Fr catheter MULTIPACK Cardinal 1 043013 5 JL 4.0 5Fr Health catheter MULTIPACK Cardinal 1 399582 5 3DRC 5Fr Health catheter GUIDE 6FR Cardinal 1 [id number] 785380 198556 278681 3 XBLAD 4.0 Health catheter ([id number]) EXOSEAL 6Fr Cardinal 1 EX600 483701 300398 314449 10 (EX600) Health Signature Audit [place] Stage Time Signature Unsigned Intra-Procedure 09/22/2017 Joanne Peraza 12:30:06 PM RT(R) Signatures Monitor : Joanne Peraza Signature : RT Date : Time : [address] [address]
[~2017-09-22 07:52] MED LIST changes: -GABAPENTIN100 MG PO; -ISOSORBIDE MONO30 M1 PO; -VITAMIN D250000 UNIT PO
[2017-09-22] MEDS ORDERED: GABAPENTIN100 MG PO (08:27)
[2017-09-22] MEDS ORDERED: VITAMIN D250000 UNIT PO (08:28)
[2017-09-22 08:33] VITALS: BP 136/97; Ht 170.2 cm; Wt 97.7 kg
[2017-09-22 08:51] LABS: BASOPHILS 0.6 % (0-2); EOSINOPHILS 5.5 % (0-7); HEMATOCRIT 46.3 % (42.0-54.0); HEMOGLOBIN 15.9 g/dL (13.5-17.5); IMMATURE GRANULOCYTES 0.3 % (0-5); LYMPHOCYTES 30.8 % (15-50); MCH 32.9 pg (26.0-34.0); MCHC 34.3 g/dL (31.0-37.0); MCV 95.7 fL (80.0-100.0); MEAN PLATELET VOLUME 10.3 fL (7.4-10.4); MONOCYTES 7.2 % (2-11); NEUTROPHILS 55.6 % (40-80); RBC 4.84 10x6/uL (4.20-6.10); RDW 13.4 % (11.5-14.5); WBC 8.8 10x3/uL (4.8-10.8)
[2017-09-22 09:00] LABS: PLATELET COUNT 213 10x3/uL (130-400)
[2017-09-22 09:01] LABS: CALCIUM 9.6 mg/dL (8.5-10.1); CARBON DIOXIDE 20.4 mmol/L (21.0-32.0); CREATININE - SERUM 1.3 mg/dL (0.6-1.3)
[2017-09-22 09:06] LABS: ANION GAP 14.6 mmol/L (8-16)
[2017-09-22] MEDS ORDERED: ISOSORBIDE MONO30 M1 PO (13:17)
== END 2017-09-22 18:45 | disposition home or self-care (01) ==
LOC: D.CATH 07:52
PROVIDERS: Internal Medicine Interventional Cardiology
DX: I25.119 Atherosclerotic heart disease of native coronary artery with unspecified angina pectoris (principal); Z95.5 Presence of coronary angioplasty implant and graft; Z01.812 Encounter for preprocedural laboratory examination

== ENCOUNTER 2017-09-24 17:46 | Emergency (ER) | payer MEDICARE ==
[2017-09-22 08:33] VITALS: BMI 33.7
[~2017-09-24 17:46] MED LIST changes: +GABAPENTIN100 MG PO; +ISOSORBIDE MONO30 M1 PO; +VITAMIN D250000 UNIT PO
== END 2017-09-24 21:00 | disposition home or self-care (01) ==
LOC: D.ER 17:46
DX: J44.1 Chronic obstructive pulmonary disease with (acute) exacerbation (principal)

== ENCOUNTER → 2017-10-13 09:40 | Outpatient (CLI) | payer MEDICARE ==
[2017-09-22 08:33] VITALS: BMI 33.7
== END | disposition home or self-care (01) ==
LOC: D.US 09:40
DX: R09.89 Other specified symptoms and signs involving the circulatory and respiratory systems (principal)

== ENCOUNTER 2017-11-24 05:05 | Emergency (ER) | payer MEDICARE ==
[~2017-11-24] VITALS: Ht 170.2 cm; Wt 90.9 kg
[2017-11-24 05:09] VITALS: Ht 170.2 cm; Wt 90.9 kg
[2017-11-24] MEDS ORDERED: CYCLOBENZAPRINE10 MG PO (08:11)
[2017-11-24] MEDS ORDERED: ACETAMINOPHEN500 M1 PO (08:11)
[2017-11-24] MEDS ORDERED: IBUPROFEN800 MG PO (08:11)
[2017-11-24 08:33] VITALS: BP 128/76
== END 2017-11-24 08:34 | disposition home or self-care (01) ==
LOC: D.ER 05:05
DX: R51 Headache (principal); I10 Essential (primary) hypertension; J44.9 Chronic obstructive pulmonary disease, unspecified

== ENCOUNTER 2018-02-16 09:44 | Inpatient (IN) | payer MEDICARE ==
[~2018-02-16] VITALS: Ht 170.2 cm; Wt 85.6 kg
--- NOTE | ~2018-02-16 | CN ---
PATIENT NAME:ANNMARIE COATES MEDICAL RECORD: [id number] : 44 LOCATION:D. D.2122 ADMIT DATE: 02/16/18 ACCOUNT: [id number] CONSULTING PHYSICIAN: IZABELA DORADO MD REFERRING PHYSICIAN: SUAD CULVER DO DATE OF CONSULTATION: 02/16/2018 ADMITTING DIAGNOSES: 1. Angina. 2. Coronary artery disease. 3. Chronic obstructive pulmonary disease. 4. Shortness of breath, dyspnea on exertion. 5. Peripheral vascular disease. 6. Claudication. HISTORY OF PRESENT ILLNESS: Mr. Coates presents with right leg claudication, peripheral vascular disease, anginal symptomatology, shortness of breath, dyspnea on exertion. He has a history of coronary artery disease. Last cardiac intervention was in August. He has a history of peripheral vascular disease, last peripheral intervention on the right leg was approximately a year ago. PHYSICAL EXAMINATION: GENERAL APPEARANCE: Well-nourished, well-developed, appears stated age. Level of distress, comfortable. PSYCHIATRIC: Mental status, alert, normal affect. Orientation, oriented to time, place and person. EYES: Lids and conjunctiva, noninjected. No discharge, no pallor. ENT: Lips, teeth, gums, normal dentition. Oropharynx, no cyanosis, no pallor. NECK: Carotid arteries, bilateral normal upstroke, no bruits, no thrills. JUGULAR VEINS: No jugular venous pressure or distention. CERVICAL LYMPH NODES: Nontender, nonenlarged. THYROID: Not enlarged. Nontender. No nodules. LUNGS: Respiratory effort, unlabored. CHEST: Normal curvature. No thoracic deformity. No chest wall tenderness. Percussion, resonant. Auscultation, clear. No wheezes, no rales, no rhonchi. CARDIOVASCULAR: Precordial exam, nondisplaced. No heaves or pericardial thrills. Rate and rhythm, regular. Heart sounds, normal S1, normal S2. No S3, no gallop, no rub. Systolic murmur, not heard. Diastolic murmur, not heard. EXTREMITIES: No cyanosis, no edema. Peripheral pulses, full and equal in all extremities, except as noted. No bruits appreciated. ABDOMEN: Soft, nondistended. Normal aorta. No bruit. Nontender. No masses. Liver, nontender, no hepatomegaly. Spleen, nontender, no splenomegaly. MUSCULOSKELETAL: No joint tenderness. No joint swelling. No erythema. NEUROLOGICAL: Normal gait, normal strength, normal tone. SKIN: Warm and dry. REVIEW OF SYSTEMS: The patient reports easy bruising but reports no swollen glands. The patient reports no fever, no night sweats, no significant weight gain, no significant weight loss. No significant exercise tolerance. The patient reports no dry eyes, no irritation, no vision change. Patient reports no difficulty hearing and no ear pain. Patient reports no frequent nose bleeds or nose and sinus problems. Patient reports on arm pain on exertion. No shortness of breath while lying down. No history of heart murmur. Patient reports no cough, no wheezing or coughing up blood. Patient reports no abdominal pain, no vomiting. Normal appetite. No diarrhea and not vomiting CONSULT REPORT [id number] ANNMARIE COATES blood. No nausea and no constipation. Patient reports no incontinence. No difficulty urinating. No hematuria. No increased frequency. Patient reports no muscle aches. No weakness, no arthralgias, no back pain. No swelling of the extremities. Patient reports no abnormal mole, no jaundice, no rashes. Reports no loss of consciousness. No weakness and no numbness. No seizures, dizziness, or headaches. The patient reports no depression, no sleep disturbance, feeling safe in a relationship and no alcohol abuse. Patient reports on fatigue. Reports no runny nose or sinus pressure. No itching, no hives, and no frequent sneezing. OVERALL IMPRESSION: Anginal symptomatology as well as claudication. We will proceed with coronary angiography, aortofemoral runoff. Further care depends upon the findings of these studies. TRANSINT:[id number] Voice Confirmation ID: [id number] DOCUMENT ID: [id number] IZABELA DORADO MD at 1439 CC: [id number] DICTATION DATE: 02/16/18 124 DIRECTOR OF UNDERGRADUATE ADMISSIONS: 02/16/18 1245 ADM IN [place] [id number] [place] [address]
--- NOTE | ~2018-02-16 | HP ---
PATIENT: ANNMARIE COATES MEDICAL RECORD: [id number] ACCOUNT: [id number] LOCATION:[address] : 44 ADMISSION DATE: 02/16/18 PCP: SUAD CULVER DO HISTORY AND PHYSICAL EXAMINATION HISTORY OF PRESENT ILLNESS: A 77-year-old male presents with progressive shortness of breath, severe dyspnea on exertion, less than 10 feet. PAST MEDICAL HISTORY: Significant for COPD, coronary artery disease. ALLERGIES: No known drug allergies. CURRENT MEDICATIONS: Listed as Tylenol p.r.n., aspirin 81 mg daily, Tessalon Perles p.r.n. cough, Brovana inhaler, Plavix 75 mg daily, Flexeril 10 mg t.i.d. p.r.n., Daliresp 500 mcg 1 daily, vitamin D 50,000 units weekly, DuoNeb via nebulizer 3-4 times daily, isosorbide mononitrate ER 30 mg daily, Singulair 10 mg daily, Symbicort inhaler, Ventolin HFA inhaler. He has seen pulmonology and cardiology in the past. History of pneumonia, hyperlipidemia, hypertension, has had a stent placed by cardiology. REVIEW OF SYSTEMS: CONSTITUTIONAL: No known change in weight, no known change in appetite. HEENT: No cephalgia, visual changes, tinnitus, epistaxis, or dysphagia. CARDIOVASCULAR: Worsening dyspnea on exertion, chest tightness. PULMONARY: Dyspnea on exertion. History of chronic obstructive pulmonary disease. GASTROINTESTINAL: Denies hematemesis, hematochezia or melena. GENITOURINARY: Denies dysuria. MUSCULOSKELETAL: No acute changes. ENDOCRINE: Denies polyuria, polydipsia, or polyphagia. PHYSICAL EXAMINATION: VITAL SIGNS: Weight 195 pounds, temperature 97.7, blood pressure 136/84, heart rate 88, O2 sats 98% at rest. HEENT: Head is normocephalic, atraumatic. Eyes: Pupils are equally round and reactive to light and accommodation. Extraocular muscles intact. Conjunctivae not injected. Ears: Canals patent, TMs are intact. Nose: Nares patent without drainage. Throat: No erythema, no exudates. NECK: Supple. No lymphadenopathy. HEART: Regular rate and rhythm. No S3, S4, no rub. Occasional skipped beat. LUNGS: Diminished breath sounds at the bases, nonlabored at rest. Extremely dyspneic with minimal activity. EXTREMITIES: Present times 4. NEUROLOGIC: Intact. No focal deficits. SKIN: Warm and dry. No rash. DIAGNOSTIC DATA: Chest x-ray, no acute changes. EKG, sinus arrhythmia, diffuse ST changes, T-wave inversion, abnormal EKG, rate of 73. ASSESSMENT AND PLAN: Dyspnea on exertion, coronary artery disease with abnormal EKG, chronic obstructive pulmonary disease exacerbation. The patient is admitted to PCU with telemetry. Cardiology consulted. Pulmonology consulted. CBC, chemistry, BMP, CK-MB, troponin on admission. O2 maintain sats greater than 92%. DuoNebs q.i.d., sputum culture. Blood cultures times 2. CT chest HISTORY AND PHYSICAL [id number] ANNMARIE COATES without contrast, we will withhold contrast from CT chest due to possible/likely intervention with cardiology. Continue Plavix 75 mg daily. N.p.o. until cleared by cardiology. Repeat labs in a.m. Electrolyte protocol, Rocephin 1 gram IV daily, Zithromax 500 mg p.o. today, then 250 mg p.o. daily for 4 days. Supportive care. TRANSINT:[id number] Voice Confirmation ID: [id number] DOCUMENT ID: [id number] SUAD CULVER DO at 0746 CC: [id number] DICTATION DATE: 02/16/18 1119 HUMAN RESOURCES BENEFITS ADMINISTRATOR: 02/16/18 1204 ADM IN [place] [id number] [place] [address]
--- NOTE | ~2018-02-16 | HEMODYNAMI ---
PATIENT:ANNMARIE COATES MEDICAL RECORD: [id number] : 44 LOCATION:[facility] D.2122 ADMISSION DATE: 02/16/18 Generatedon:02/17/20188:50 Patient name: ANNMARIE COATES Patient #: [id number] SSN: : 1940 Date of study: 02/17/2018 Page: Of Hemodynamic Procedure Report Patient Data Patient Demographics Procedure consent was obtained First Name: ANNMARIE Gender: Male Last Name: JAXON : 1940 Middle Initial: SUNITHA Age: 77 year(s) Patient #: [id number] Race: Additional ID: [id number] Contact details Address: [address] [place] [address] State: [place] City: [facility] Zip code: [address] Past Medical History Allergies Allergen Reaction Date Comments Reported Other allergy 02/17/2018 eye dilating medicine Admission Admission Data Admission Date: 02/16/2018 Admission Time: 9:44 Room #: D.2122 Lab Results Lab Result Date: 02/17/2018 Lab Result Time: 0:00 Biochemistry Name Units Result Min Max BUN mg/dl 10 --(-*--)-- 7 18 Creatinine mg/dl 1.2 --(---*)-- 0.6 1.3 CBC Name Units Result Min Max Hemoglobin g/dl 15 --(-*--)-- 13.5 17.5 Procedure Procedure Types Cath Procedure Diagnostic Procedure LHC LHC w/Coronaries Peripheral Cath Diagnostic Procedure Senior Architect Peripheral Procedures Kutug-Ubglstv-Zzp-Off Procedure Description Procedure Date Procedure Date: 02/17/2018 Procedure Start Time: 8:36 Procedure End Time: 8:48 Procedure Staff Name Function Armin Gore MD Performing Physician North Guerrero RN Nurse Lissy Taylor RN Nurse Joanne Peraza RT Scrub Johnny Salas RT Monitor Procedure Data Cath Procedure Fluoroscopy Diagnostic fluoroscopy Total fluoroscopy Time: 2.4 time: 2.4 min min Diagnostic fluoroscopy Total fluoroscopy dose: 708 dose: 708 mGy mGy Contrast Material Contrast Material Type Amount (ml) Isovue 300 97 Entry Location Entry Primary Successful Side Size Upsize Upsize Entry Closure Succes sful Closure Location (Fr) 1 (Fr) 2 (Fr) Remarks Device Remarks Femoral Left 5 Fr Exoseal artery Estimated blood loss: 5 ml Diagnostic catheters Device Type Used For End Catheter Placement MULTIPACK Pigtail 5 Fr Procedure catheter MULTIPACK JL 4.0 5Fr Procedure catheter DIAGNOSTIC JL 5 5Fr Procedure catheter ([id number]) MULTIPACK 3DRC 5Fr Procedure catheter Procedure Complications No complications Procedure Medications Medication Administration Route Dosage Oxygen etCO2 Nasal cannula 2 l/min Lidocaine 2% added to field 20 Heparin Flush Bag added to field 2 bags (1000units/500ml NS) 0.9% NaCl I.V. 100 ml/hr Versed I.V. 2 mg Fentanyl I.V. 100 mcg Fentanyl I.V. 50 mcg Versed I.V. 1 mg Hemodynamics Rest HGB: 15 (g/dl) Heart Rate: 96 (bpm) Snapshots Pre Cath Intra NCS Post Cath Vital Signs Time Heart Resp SPO2 etCO2 NIBP Rhythm Pain Sedation Rate (ipm) (%) (mmHg) (mmHg) Status Level (bpm) 8:25:02 96 28 93 0 126/80(94) NSR 0 (11) 10(A) , No pain 8:29:49 95 25 94 27.8 108/87(95) NSR 0 (11) 10(A) , No pain 8:34:31 91 19 92 26.3 128/78(95) NSR 0 (11) 10(A) , No pain 8:39:20 93 23 93 27.8 127/73(93) NSR 0 (11) 9(A) , No pain 8:44:09 88 15 94 29.3 125/70(80) NSR 0 (11) 9(A) , No pain 8:48:53 93 16 93 0 119/73(93) NSR 0 (11) 10(A) , No pain Medications Time Medication Route Dose Verified Delivered Reason Notes Effe ctiveness by by 8:24:57 Oxygen etCO2 2 Buffie Buffie used for Nasal l/min Yolanda Guerrero RN procedure cannula 8:25:04 Lidocaine 2% added 20ml Buffie Buffie for local to vial Yolanda Guerrero RN anesthetic field 8:25:10 Heparin Flush added 2 Buffie Buffie used for Bag to bags Yolanda Guerrero hr shared services consultant (1000units/500ml field NS) 8:30:20 0.9% NaCl I.V. 100 Buffie Buffie Per ml/hr Yolanda Guerrero RN physician 8:33:10 Versed I.V. 2 mg Buffie Buffie for Yolanda Guerrero RN sedation 8:33:23 Fentanyl I.V. 100 Buffie Buffie for mcg Yolanda Guerrero RN sedation 8:35:22 Fentanyl I.V. 50 Buffie Buffie for mcg Yolanda RN Yolanda RN sedation 8:35:31 Versed I.V. 1 mg Buffie Buffie for Yolanda RN Yolanda RN sedation Procedure Log Time Note 7:56:22 Signed procedure consent form obtained from patient. 7:56:41 H&P Date Dictated: 02/16/2018 Within 30 days and on chart.. 7:57:32 Lab Result : Creatinine 1.2 mg/dl 7:57:32 Lab Result : BUN 10 mg/dl 7:57:32 Lab Result : Hemoglobin 15 g/dl 8:01:10 Time tracking: Regular hours (M-F 7:00 - 5:00) 8:01:16 Plan of Care:Hemodynamics will remain stable., Cardiac rhythm will remain stable., Comfort level will be maintained., Respiratory function will remain adequate., Patient/ family verbilizes understanding of procedure., Procedure tolerated without complication., Recovers from procedure without complications.. 8:01:19 North Guerrero RN sent for patient. Start room use. 8:01:22 Diagnostic Cath status Elective 8:18:41 Patient received from Med II to CCL 1 Alert and oriented. Tansferred to table in Supine position. 8:18:41 Warm blankets applied, and landon hugger turned on for patient comfort. 8:18:42 Correct patient and procedure confirmed by team. 8:18:43 ECG and BP/O2 sat monitors applied to patient. 8:23:58 Vital chart was started 8:24:01 Rhythm: sinus rhythm 8:24:06 Full Disclosure recording started 8:24:07 Pre-procedure instructions explained to patient. 8:24:08 Pre-op teaching completed and patient verbalized understanding. 8:24:10 Family in patients room. 8:24:19 Patient NPO since Dinner. 8:24:45 Patient allergic to Other allergyeye dilating medicine 8:24:48 Is the patient allergic to Iodine/contrast media? No. 8:24:52 Is patient on blood thinner?Yes 8:24:54 ACC The patient was administered the following blood thiners within the last 24 hours: ACCPlavix 8:24:57 Oxygen 2 l/min etCO2 Nasal cannula was administered by North Guerrero RN; used for procedure; 8:25:04 Lidocaine 2% 20ml vial added to field was administered by North Guerrero RN; for local anesthetic; 8:25:10 Heparin Flush Bag (1000units/500ml NS) 2 bags added to field was administered by North Guerrero RN; used for procedure; 8:27:01 Patient diabetic? No. 8:27:06 Previous problem with sedation/anesthesia? No ? 8:27:07 Snore? Yes 8:27:08 Sleep apnea? No 8:27:09 Deviated septum? No 8:27:09 Opens mouth fully? Yes 8:27:10 Sticks out tongue? Yes 8:27:18 Airway obstruction? Yes COPD 8:27:21 Dentures? No ? 8:27:24 Pre procedure: right dorsailis pedis pulse 2+ Normal; easily identifiable; not easily obliterated 8:27:31 Patient pain scale 0/10 ?. 8:27:38 IV patent on arrival in left wrist with 0.9% NaCl at O. 8:27:44 Lab results completed and on chart. 8:27:48 Right groin area was prepped with chlora-prep and draped in sterile fashion 8:27:49 Alarms reviewed by R. N. 8:27:49 Sharps counted by scrub and verified by R.N. 8:30:01 Final Timeout: patient, procedure, and site verified with staff and physician. All members of the team are in agreement. 8:30:03 Right groin site verified by team. 8:30:05 Physical assessment completed. ASA score P 3 - A patient with severe systemic disease as per Armin Gore MD. 8:30:11 Sedation plan: IV Moderate Sedation Medication:Versed, Fentanyl 8:30:20 0.9% NaCl 100 ml/hr I.V. was administered by Buffie Guerrero RN; Per physician; 8:32:07 Baseline sample Acquired. 8:32:13 Use device set Femoral Dx 8:32:14 ACIST Syringe (41901) opened to sterile field. 8:32:14 Bag Decanter (2002S) opened to sterile field. 8:32:14 Medline Cath Pack ([id number]) opened to sterile field. 8:32:16 ACIST Hand Control (13178) opened to sterile field. 8:32:16 ACIST Manifold (26942) opened to sterile field. 8:32:17 Tegaderm 4 x 4 (1626W) opened to sterile field. 8:32:20 DIAGNOSTIC Multipack 5Fr catheter set (AN2779) opened to sterile field. 8:32:20 PERCUTANEOUS ENTRY 19GA needle opened to sterile field. 8:32:21 DIAGNOSTIC WIRE .035 260cm J wire (120511) opened to sterile field. 8:32:23 SHEATH Prelude 5Fr 0.035 (BSI-0A-51-035) opened to sterile field. 8:33:10 Versed 2 mg I.V. was administered by North Guerrero RN; for sedation; 8:33:12 Zero performed for pressure channel P1 8:33:23 Fentanyl 100 mcg I.V. was administered by North Guerrero RN; for sedation; 8:34:19 Zero performed for pressure channel P1 8:35:22 Fentanyl 50 mcg I.V. was administered by North Guerrero RN; for sedation; 8:35:31 Versed 1 mg I.V. was administered by North Guerrero RN; for sedation; 8:35:59 Procedure started. 8:36:02 Local anesthetic to left femerol artery with Lidocaine 2% by Armin Gore MD.INITIAL ACCESS ONLY 8:36:12 A 5 Fr sheath was inserted into the Left Femoral artery 8:37:23 A MULTIPACK Pigtail 5 Fr catheter was advanced over the wire and used for Procedure. 8:37:41 LV gram done using STEPHENS 8:37:43 Injector settings: Ml/sec: 10, Volume: 20, 8:38:16 EF : 60 % 8:38:29 Abdominal angiogram w/ runoff was performed. 8:38:43 Left leg runoff performed. 8:38:47 Right leg runoff performed. 8:39:04 Catheter exchanged over wire. 8:39:09 A MULTIPACK JL 4.0 5Fr catheter was advanced over the wire and used for Procedure. 8:40:25 Catheter removed. unable to cannulate vessel. 8:40:35 A DIAGNOSTIC JL 5 5Fr catheter ([id number]) was advanced over the wire and used for Procedure. 8:42:11 LCA angiography performed. 8:42:47 Catheter exchanged over wire. 8:43:11 A MULTIPACK 3DRC 5Fr catheter was advanced over the wire and used for Procedure. 8:43:19 RCA angiography performed. 8:44:18 Catheter removed. 8:44:21 EXOSEAL 5Fr (EX500) opened to sterile field. 8:44:36 Sheath removed intact; hemostasis achieved with Exoseal to the Left Femoral artery. 8:44:38 Procedure ended.(Physican Out) 8:47:01 Fluoroscopy time 02.40 minutes. 8:47:05 Flurop Dose total: 708 8:47:05 Fluoroscopy dose: 708 mGy 8:47:08 Contrast amount:Isovue 300 97ml. 8:47:10 Sharps counted by scrub and verified by R.N. 8:47:11 Insertion/operative site no bleeding no hematoma. 8:47:14 Post-op/insertion site Left Femoral artery dressed using a 4 x 4 and Tegaderm. 8:47:18 Post left femerol artery:stable, soft, clean and dry 8:47:26 Post Procedure Pulses reassessed and unchanged 8:47:28 Post-procedure physical assessment completed. ASA score P 3 - A patient with severe systemic disease as per Armin Gore MD. 8:47:30 Post procedure rhythm: unchanged. 8:47:34 Estimated blood loss: 5 ml 8:47:36 Post procedure instruction explained to patient.Patient verbalizes understanding. 8:47:36 Patient needs reinforcement of post procedure teaching. 8:47:45 Procedure type changed to Cath procedure, Diagnostic procedure, LHC, LHC w/Coronaries, Peripheral Cath Diagnostic Procedure, Senior Architect Peripheral Procedures, Raper-Crrzmbp-Vch-Off 8:48:16 Procedure and supply charges have been captured, reviewed, submitted and are correct. 8:48:18 Procedure Complication : No complications 8:48:20 Vital chart was stopped 8:48:20 See physician's report for complete and final results. 8:48:22 Report given to PCU. 8:48:24 Patient transfered to PCU with Stretcher. 8:48:26 Procedure ended. 8:48:26 Full Disclosure recording stopped 8:48:37 End room use (Document Last) Device Usage Item Name Manufacture Quantity Catalog Number Hospital Part Current M inimal Lot# / Charge Number Stock Stock Serial# Code ACIST Syringe Acist 1 23890 791158 882382 407832 2 0 (75228) [employer] Bag Decanter Microtek 1 2001S 375398 65535 330435 5 () Medical Inc. Medline Cath Cardinal 1 [id number] 544762 00418 715924 5 Pack Health ([id number]) ACIST Hand Acist 1 49570 577570 842686 861126 5 Control (03152) [employer] Inc ACIST Manifold Acist 1 23749 900480 675291 885426 5 (33295) [employer] Inc Tegaderm 4 x 4 3M 1 1626W 753814 827074 276358 5 (1626W) DIAGNOSTIC Cardinal 1 [id number] 679097 41770 475538 3 0 Multipack 5Fr Health catheter set (QM4855) PERCUTANEOUS Cook Medical 1 [id number] 297896 187228 5 ENTRY 19GA needle DIAGNOSTIC WIRE [facility] 1 128740 388952 355334 731952 3 0 .035 260cm J wire (133334) SHEATH Prelude Merit 1 PJN-1U-60-035 125110 899533 533526 5 5Fr 0.035 Medical (MDE-0D-86-035) MULTIPACK Cardinal 1 485779 5 Pigtail 5 Fr Health catheter MULTIPACK JL Cardinal 1 574686 5 4.0 5Fr Health catheter DIAGNOSTIC JL 5 Cardinal 1 [id number] 124536 922980 363495 5 5Fr catheter Health (987362Y) MULTIPACK 3DRC Cardinal 1 435336 5 5Fr catheter Health EXOSEAL 5Fr Cardinal 1 EX500 778983 855141 965205 1 0 (EX500) Health Signature Audit [place] Stage Time Signature Unsigned Intra-Procedure 02/17/2018 Johnny Salas 8:50:50 AM RT(R) Signatures Monitor : Johnny Salas RT Signature : Date : Time : [place] [address] [address] [place] [address]
--- NOTE | ~2018-02-16 | DS ---
PATIENT:ANNMARIE COATES :44 MEDICAL RECORD: [id number] DISCHARGE SUMMARY ADMISSION DATE: 02/16/18 DISCHARGE DATE: 02/25/18 A 77-year-old male. DATE OF ADMISSION: 02/16/2018 DATE OF DISCHARGE: 02/25/2018 ADMISSION DIAGNOSES: Exacerbation of COPD, severe dyspnea on exertion, history of CAD, and peripheral vascular disease also complaining of claudication. CONSULTS: Pulmonology, cardiology. PROCEDURES: Cardiac catheterization. CT chest. HOSPITAL COURSE: The patient had a protracted hospital course with his acute findings and abnormal EKG. Underwent cardiac catheterization also with lower extremity evaluation. No significant occlusion. Pulmonology consulted. Medications adjusted. The patient had significant arrhythmias. Cardiac meds adjusted, gradual improvement. The patient has been cleared for discharge by cardiology and pulmonology. He is discharged to home in stable and improved condition. He is off of oxygen. PHYSICAL EXAMINATION: VITAL SIGNS: On discharge, temperature 98.2, blood pressure is 122/65, heart rate 76, respirations 20, O2 sats 94% on room air. GENERAL: Alert, oriented. HEART: Regular rate and rhythm, presently in sinus rhythm. LUNGS: Clear to auscultation bilaterally, mildly prolonged expiratory phase. Breathing is nonlabored. Significant improvement in air movement. ABDOMEN: Soft, nontender. EXTREMITIES: Present times 4. NEUROLOGIC: Intact. SKIN: Warm and dry. No rash. DISCHARGE INSTRUCTIONS: The patient will follow up with pulmonology as scheduled. Will follow up with cardiology as scheduled. Follow up in the clinic in 10 days. See chart for further details of this complex case. TRANSINT:[id number] Voice Confirmation ID: [id number] DOCUMENT ID: [id number] SUAD CULVER DO at 1300 CC: [id number] DICTATION DATE: 02/25/18 1619 EMERGENCY SERVICE WORKER: 02/25/18 2304 DIS IN 02/25/18 [place] [id number] [place] [id number]
--- NOTE | ~2018-02-16 | OP ---
PATIENT NAME: ANNMARIE COATES MEDICAL RECORD: [id number] :44 LOCATION:D.M2 D.2122 ADMISSION DATE:02/16/18 SURGEON: IZABELA DORADO MD DATE OF OPERATION: 02/17/2018 PROCEDURES: 1. Left heart catheterization. 2. Selective coronary angiography. 3. Left ventriculogram. 4. Aortofemoral runoff. 5. Abdominal aortography. INDICATION: Claudication, peripheral vascular disease, angina, and coronary artery disease. PROCEDURE IN DETAIL: After informed consent was obtained and after a detailed description of risks, benefits as well as alternative therapies, the patient elected to proceed with angiogram and heart catheterization. The right femoral area was prepped and draped in normal sterile fashion. Right femoral artery was cannulated via modified Seldinger technique with placement of 6-Faroese sheath. All catheters exchanged through this sheath. FINDINGS: Left ventriculogram was performed in standard 30-degree STEPHENS view, reveals good cardiac wall motion throughout all segments. Overall ejection fraction 55% to 60%. SELECTIVE CORONARY ANGIOGRAPHY: 1. Left main has no significant angiographic disease. 2. Left anterior descending has previously placed stents, these are widely patent with no significant restenosis. No disease elsewise throughout the LAD or its branches. 3. Left circumflex has moderate irregularities, but no flow-limiting stenosis. 4. Right coronary artery has moderate irregularities, but no flow-limiting stenosis. Abdominal aortography was performed. The catheter was pulled down for aortofemoral runoff. Abdominal aortography reveals no significant abdominal aortic disease, no dissection or aneurysm formation. RIGHT LEG: A. Iliac: The common internal and external iliacs have moderate irregularities, but no flow-limiting stenosis. B. Femoral system. The common superficial and deep femoral have moderate irregularities, but no flow-limiting stenosis. C. Popliteal and infrapopliteal vessels have mild irregularities, but no flow-limiting stenosis. LEFT LEG: A. Iliac: The common internal and external iliacs have moderate irregularities, but no flow-limiting stenosis. B. Femoral system. The common superficial and deep femoral have moderate irregularities, but no flow-limiting stenosis. C. Popliteal and infrapopliteal vessels have mild irregularities, but no flow-limiting stenosis. OPERATIVE REPORT [id number] ANNMARIE COATES OVERALL IMPRESSION: 1. No significant restenosis of the previously placed stents in the LAD. No significant disease elsewise throughout the coronaries. 2. No significant peripheral vascular disease is present. Leg pain is nonarteriovascular in etiology. TRANSINT:[id number] Voice Confirmation ID: [id number] DOCUMENT ID: [id number] IZABELA DORADO MD at 1859 CC: [id number] DICTATION DATE: 02/17/1851 DISTRIBUTION LEAD: 02/17/18 0902 [facility] [place] [id number] [place] [id number]
[~2018-02-16 09:44] MED LIST changes: +ACETAMINOPHEN500 M1 PO; +CYCLOBENZAPRINE10 MG PO; +IBUPROFEN800 MG PO
[2018-02-16 12:49] LABS: BASOPHILS 0.6 % (0-2); EOSINOPHILS 10.8 % (0-7); IMMATURE GRANULOCYTES 0.1 % (0-5); LYMPHOCYTES 32.9 % (15-50); MCH 32.6 pg (26.0-34.0); MCHC 34.9 g/dL (31.0-37.0); MCV 93.5 fL (80.0-100.0); MEAN PLATELET VOLUME 10.2 fL (7.4-10.4); NEUTROPHILS 44.6 % (40-80); PLATELET COUNT 213 10x3/uL (130-400); RDW 13.5 % (11.5-14.5); WBC 6.8 10x3/uL (4.8-10.8)
[2018-02-16 13:13] VITALS: BP 116/77; BMI 30.6
[2018-02-16 13:14] LABS: CALC OSMOLALITY 276 mosm/kg (275-300); CARBON DIOXIDE 24.1 mmol/L (21.0-32.0); CHLORIDE - SERUM 106 mmol/L (98-107); CKMB 1.2 U/L (0.0-3.6); CREATININE - SERUM 1.2 mg/dL (0.6-1.3); GLUCOSE 103 mg/dL (74-106); POTASSIUM - SERUM 3.8 mmol/L (3.5-5.1); PRO BNP 316 pg/mL (0-450); SODIUM 139 mmol/L (136-145); TROPONIN-I < 0.017 ng/mL (0.000-0.060); UREA NITROGEN 10 mg/dL (7-18); eGFR NON AFRICAN AMERICAN 63 mL/min (90-120)
[2018-02-16 15:47] VITALS: BP 116/77
[2018-02-16 22:05] VITALS: BP 119/82
[2018-02-17 02:00] VITALS: BP 120/75
[2018-02-17 04:31] LABS: BASOPHILS 0.4 % (0-2); EOSINOPHILS 1.4 % (0-7); IMMATURE GRANULOCYTES 0.1 % (0-5); LYMPHOCYTES 14.5 % (15-50); MCH 32.5 pg (26.0-34.0); MCHC 34.8 g/dL (31.0-37.0); MCV 93.5 fL (80.0-100.0); MEAN PLATELET VOLUME 10.4 fL (7.4-10.4); MONOCYTES 0.9 % (2-11); NEUTROPHILS 82.7 % (40-80); PLATELET COUNT 235 10x3/uL (130-400); RBC 4.92 10x6/uL (4.20-6.10); RDW 13.4 % (11.5-14.5); WBC 7.8 10x3/uL (4.8-10.8)
[2018-02-17 04:58] LABS: ANION GAP 13.8 mmol/L (8-16); CALCIUM 9.3 mg/dL (8.5-10.1); CARBON DIOXIDE 24.5 mmol/L (21.0-32.0); CREATININE - SERUM 1.2 mg/dL (0.6-1.3); MAGNESIUM - SERUM 2.1 mg/dL (1.8-2.4); PHOSPHOROUS 2.8 mg/dL (2.5-4.9); POTASSIUM - SERUM 4.3 mmol/L (3.5-5.1)
[2018-02-17 06:16] VITALS: BP 131/85
[2018-02-17 08:39] VITALS: BP 137/88
[2018-02-17 10:47] VITALS: BP 131/82
[2018-02-17 12:22] VITALS: Ht 170.2 cm; Wt 85.6 kg
[2018-02-17 15:37] VITALS: BP 122/45
[2018-02-17 21:18] VITALS: BP 126/55
[2018-02-18 05:14] LABS: BASOPHILS 0 % (0-2); EOSINOPHILS 0 % (0-7); HEMATOCRIT 43.5 % (42.0-54.0); HEMOGLOBIN 14.9 g/dL (13.5-17.5); IMMATURE GRANULOCYTES 0.3 % (0-5); LYMPHOCYTES 16.1 % (15-50); MCH 32.1 pg (26.0-34.0); MCHC 34.3 g/dL (31.0-37.0); MCV 93.8 fL (80.0-100.0); MEAN PLATELET VOLUME 10.4 fL (7.4-10.4); MONOCYTES 5.7 % (2-11); NEUTROPHILS 77.9 % (40-80); PLATELET COUNT 256 10x3/uL (130-400); RBC 4.64 10x6/uL (4.20-6.10); RDW 13.3 % (11.5-14.5); WBC 12.7 10x3/uL (4.8-10.8)
[2018-02-18 05:16] LABS: ANION GAP 16.1 mmol/L (8-16); CALCIUM 9.2 mg/dL (8.5-10.1); CARBON DIOXIDE 19.9 mmol/L (21.0-32.0); MAGNESIUM - SERUM 2.3 mg/dL (1.8-2.4)
[2018-02-18 05:18] LABS: CREATININE - SERUM 1.7 mg/dL (0.6-1.3); PHOSPHOROUS 4.6 mg/dL (2.5-4.9)
[2018-02-18 05:42] VITALS: BP 132/58
[2018-02-18 08:19] VITALS: BP 127/66
[2018-02-18 15:41] VITALS: BP 131/56
[2018-02-18 20:00] VITALS: BP 118/59
[2018-02-19 04:59] VITALS: BP 122/65
[2018-02-19 07:20] LABS: ANION GAP 14.6 mmol/L (8-16); CALCIUM 8.7 mg/dL (8.5-10.1); CARBON DIOXIDE 23.1 mmol/L (21.0-32.0); CREATININE - SERUM 1.3 mg/dL (0.6-1.3); POTASSIUM - SERUM 3.7 mmol/L (3.5-5.1)
[2018-02-19 08:00] VITALS: BP 141/66
[2018-02-19 11:37] VITALS: BP 130/58
[2018-02-19 15:32] VITALS: BP 122/52
[2018-02-19 21:10] VITALS: BP 121/57
[2018-02-20 04:30] VITALS: BP 127/57
[2018-02-20 05:26] LABS: BASOPHILS 0 % (0-2); EOSINOPHILS 0 % (0-7); HEMATOCRIT 40.7 % (42.0-54.0); HEMOGLOBIN 13.9 g/dL (13.5-17.5); IMMATURE GRANULOCYTES 1.3 % (0-5); LYMPHOCYTES 8.9 % (15-50); MCH 32.1 pg (26.0-34.0); MCHC 34.2 g/dL (31.0-37.0); MEAN PLATELET VOLUME 10.5 fL (7.4-10.4); MONOCYTES 3.6 % (2-11); NEUTROPHILS 86.2 % (40-80); PLATELET COUNT 247 10x3/uL (130-400); RBC 4.33 10x6/uL (4.20-6.10); RDW 13.6 % (11.5-14.5); WBC 11.3 10x3/uL (4.8-10.8)
[2018-02-20 05:56] LABS: ALBUMIN 3.2 g/dL (3.4-5.0); ANION GAP 14.5 mmol/L (8-16); BILIRUBIN - TOTAL 0.3 mg/dL (0.2-1.3); CALCIUM 8.6 mg/dL (8.5-10.1); CARBON DIOXIDE 23.7 mmol/L (21.0-32.0); CREATININE - SERUM 1.3 mg/dL (0.6-1.3); POTASSIUM - SERUM 4.2 mmol/L (3.5-5.1); PROTEIN - SERUM 6.3 g/dL (6.4-8.2)
[2018-02-20 15:35] VITALS: BP 150/64
[2018-02-20 20:00] VITALS: BP 128/69
[2018-02-20 23:54] VITALS: BP 142/74
[2018-02-21 04:00] VITALS: BP 161/71
[2018-02-21 04:37] LABS: BASOPHILS 0.2 % (0-2); EOSINOPHILS 0.1 % (0-7); HEMATOCRIT 42.5 % (42.0-54.0); HEMOGLOBIN 14.6 g/dL (13.5-17.5); IMMATURE GRANULOCYTES 2.8 % (0-5); MCH 32.4 pg (26.0-34.0); MCHC 34.4 g/dL (31.0-37.0); MCV 94.2 fL (80.0-100.0); MEAN PLATELET VOLUME 10.6 fL (7.4-10.4); MONOCYTES 5.8 % (2-11); NEUTROPHILS 80.1 % (40-80); PLATELET COUNT 262 10x3/uL (130-400); RBC 4.51 10x6/uL (4.20-6.10); RDW 13.7 % (11.5-14.5); WBC 12.7 10x3/uL (4.8-10.8)
[2018-02-21 04:56] LABS: ALBUMIN 3.3 g/dL (3.4-5.0); ANION GAP 15.2 mmol/L (8-16); BILIRUBIN - TOTAL 0.42 mg/dL (0.2-1.3); CALCIUM 8.9 mg/dL (8.5-10.1); CREATININE - SERUM 1.4 mg/dL (0.6-1.3); POTASSIUM - SERUM 4.2 mmol/L (3.5-5.1); PROTEIN - SERUM 6.8 g/dL (6.4-8.2)
[2018-02-21 08:32] VITALS: BP 150/77
[2018-02-21 10:55] VITALS: BP 142/71
[2018-02-21 15:20] VITALS: BP 129/57
[2018-02-21 22:10] VITALS: BP 129/69
[2018-02-22] VITALS: BP 133/61
[2018-02-22 04:32] LABS: BASOPHILS 0.2 % (0-2); EOSINOPHILS 0 % (0-7); HEMOGLOBIN 14.7 g/dL (13.5-17.5); IMMATURE GRANULOCYTES 4.4 % (0-5); LYMPHOCYTES 9.7 % (15-50); MCH 32.4 pg (26.0-34.0); MCHC 34.2 g/dL (31.0-37.0); MCV 94.7 fL (80.0-100.0); MEAN PLATELET VOLUME 11.1 fL (7.4-10.4); MONOCYTES 5.8 % (2-11); NEUTROPHILS 79.9 % (40-80); RBC 4.54 10x6/uL (4.20-6.10); RDW 13.8 % (11.5-14.5); WBC 12.1 10x3/uL (4.8-10.8)
[2018-02-22 04:39] LABS: PLATELET COUNT 208 10x3/uL (130-400)
[2018-02-22 04:43] LABS: ANION GAP 14.1 mmol/L (8-16); CALCIUM 8.9 mg/dL (8.5-10.1); CARBON DIOXIDE 26.5 mmol/L (21.0-32.0); CREATININE - SERUM 1.4 mg/dL (0.6-1.3); POTASSIUM - SERUM 4.6 mmol/L (3.5-5.1)
[2018-02-22 04:44] VITALS: BP 134/71
[2018-02-22 08:23] VITALS: BP 142/81
[2018-02-22 12:00] VITALS: BP 149/87
[2018-02-22 15:54] VITALS: BP 110/74
[2018-02-22 20:00] VITALS: BP 133/67
[2018-02-23] VITALS: BP 134/67
[2018-02-23 05:07] LABS: BASOPHILS 0.3 % (0-2); EOSINOPHILS 0.1 % (0-7); HEMATOCRIT 44.3 % (42.0-54.0); HEMOGLOBIN 15.3 g/dL (13.5-17.5); IMMATURE GRANULOCYTES 6.3 % (0-5); LYMPHOCYTES 11.9 % (15-50); MCH 32.8 pg (26.0-34.0); MCHC 34.5 g/dL (31.0-37.0); MCV 95.1 fL (80.0-100.0); MEAN PLATELET VOLUME 10.7 fL (7.4-10.4); MONOCYTES 5.6 % (2-11); NEUTROPHILS 75.8 % (40-80); RBC 4.66 10x6/uL (4.20-6.10); WBC 12.8 10x3/uL (4.8-10.8)
[2018-02-23 05:09] LABS: PLATELET COUNT 283 10x3/uL (130-400)
[2018-02-23 05:31] LABS: ANION GAP 12.2 mmol/L (8-16); CALCIUM 8.5 mg/dL (8.5-10.1); CARBON DIOXIDE 26.2 mmol/L (21.0-32.0); CREATININE - SERUM 1.5 mg/dL (0.6-1.3); POTASSIUM - SERUM 4.4 mmol/L (3.5-5.1)
[2018-02-23 06:37] VITALS: BP 110/71
[2018-02-23 09:39] VITALS: BP 130/79
[2018-02-23 12:34] VITALS: BP 111/58
[2018-02-23 16:12] VITALS: BP 128/67
[2018-02-23 23:43] VITALS: BP 134/61
[2018-02-24 04:00] VITALS: BP 133/70
[2018-02-24 05:20] LABS: BASOPHILS 0.2 % (0-2); EOSINOPHILS 0.1 % (0-7); HEMATOCRIT 45.2 % (42.0-54.0); HEMOGLOBIN 15.3 g/dL (13.5-17.5); IMMATURE GRANULOCYTES 6.8 % (0-5); LYMPHOCYTES 10.1 % (15-50); MCH 32.1 pg (26.0-34.0); MCHC 33.8 g/dL (31.0-37.0); MEAN PLATELET VOLUME 10.6 fL (7.4-10.4); MONOCYTES 3.2 % (2-11); NEUTROPHILS 79.6 % (40-80); PLATELET COUNT 269 10x3/uL (130-400); RBC 4.76 10x6/uL (4.20-6.10); RDW 14.1 % (11.5-14.5); WBC 12.8 10x3/uL (4.8-10.8)
[2018-02-24 05:41] LABS: ANION GAP 14.4 mmol/L (8-16); CALCIUM 8.5 mg/dL (8.5-10.1); CARBON DIOXIDE 25.5 mmol/L (21.0-32.0); CREATININE - SERUM 1.4 mg/dL (0.6-1.3); POTASSIUM - SERUM 4.9 mmol/L (3.5-5.1)
[2018-02-24 09:17] VITALS: BP 130/72
[2018-02-24 11:38] VITALS: BP 124/72
[2018-02-24 15:58] VITALS: BP 120/60
[2018-02-24 20:00] VITALS: BP 124/75
[2018-02-25 01:19] VITALS: BP 117/64
[2018-02-25 05:38] VITALS: BP 113/60
[2018-02-25 07:50] VITALS: BP 126/72
[2018-02-25 11:23] VITALS: BP 120/67
[2018-02-25 15:03] VITALS: BP 122/65
[2018-02-25] MEDS ORDERED: TOPROL XL50 MG PO (16:09)
[2018-02-25] MEDS ORDERED: CORDARONE PO (16:10)
[2018-02-25] MEDS ORDERED: PREDNISONE10 MG PO (16:12)
== END 2018-02-25 17:38 | disposition home or self-care (01) | DRG 178 ==
LOC: D.SDCHOLD 09:44 → D.M2 09:44
PROVIDERS: Family Medicine; Internal Medicine Interventional Cardiology
PROC: 4A023N7 Measurement of Cardiac Sampling and Pressure, Left Heart, Percutaneous Approach (ICD-10-PCS; 2018-02-17)
PROC: B4101ZZ Fluoroscopy of Abdominal Aorta using Low Osmolar Contrast (ICD-10-PCS; 2018-02-17)
PROC: B2111ZZ Fluoroscopy of Multiple Coronary Arteries using Low Osmolar Contrast (ICD-10-PCS; principal; 2018-02-17 08:00)
PROC: B2151ZZ Fluoroscopy of Left Heart using Low Osmolar Contrast (ICD-10-PCS; 2018-02-17 08:00)
DX: J15.6 Pneumonia due to other Gram-negative bacteria (principal); J44.1 Chronic obstructive pulmonary disease with (acute) exacerbation; J44.0 Chronic obstructive pulmonary disease with (acute) lower respiratory infection; J84.9 Interstitial pulmonary disease, unspecified; J20.9 Acute bronchitis, unspecified; J13 Pneumonia due to Streptococcus pneumoniae; I25.10 Atherosclerotic heart disease of native coronary artery without angina pectoris; J30.9 Allergic rhinitis, unspecified; E78.5 Hyperlipidemia, unspecified; I10 Essential (primary) hypertension; G25.81 Restless legs syndrome; I71.2 Thoracic aortic aneurysm, without rupture